=== PATIENT | female | born 1995 ===

== ENCOUNTER 2020-01-21 13:45 | Outpatient (REF) | payer OTHER, SELFPAY ==
[2020-01-21 14:43] LABS: MANUAL DIFF FLAG NO
[2020-01-21 14:47] LABS: Basophils Percent Auto 0.3 % (0-2); Eosinophils Absolute Auto 0.1 X10*3/uL (0.0-0.4); Hematocrit 40.7 % (37-47); Hemoglobin 12.4 g/dl (12.0-16.0); Imm Gran Abs Auto 0.02 X10*3/uL (0.00-0.03); Imm Gran Pct Auto 0.2 % (0.0-0.4); Lymphocytes Absolute Auto 2.7 X10*3/uL (1.2-4.9); Lymphocytes Percent Auto 30.1 % (20-40); Mean Corpuscular HGB Conc 30.5 g/dl (31.0-35.0); Mean Corpuscular Hemoglobin 21.1 pg (27.0-33.0); Mean Corpuscular Volume 69.3 fL (80-98); Mean Platelet Volume 10.9 fL (9.4-12.3); Monocytes Absolute Auto 0.4 X10*3/uL (0.1-1.2); Monocytes Percent Auto 4.7 % (2-11); Neutrophils Absolute Auto 5.6 X10*3/uL (2.0-8.3); Neutrophils Percent Auto 63.7 % (45-73); Platelet Count 357 X10*3/uL (160-400); Red Blood Count 5.87 X10*6/uL (4.20-5.50); Red Cell Distribution Width 19.3 % (11.0-16.0); White Blood Count 8.9 X10*3/uL (4.8-10.8)
[2020-01-21 15:11] LABS: Alanine Aminotransferase 14 U/L (0-31); Alkaline Phosphatase 104 U/L (39-117); Aspartate Amino Transferase 11 U/L (5-31); Bilirubin Direct 0.2 mg/dL (0.0-0.5); Bilirubin Total 0.6 mg/dL (0.0-1.0); Total Protein 7.7 g/dL (6.5-8.0)
[2020-01-21 15:34] LABS: Free T4 (Free Thyroxine) 0.88 ng/dL (0.71-1.85); Thyroid Stimulating Hormone 0.01 mIU/mL (0.32-4.0); Vitamin D 25-OH Total 28.8 ng/mL (>30)
[2020-01-23 04:31] LABS: Triiodothyronine T3 Total 100 ng/dL (76-181)
[2020-01-23 21:07] LABS: PTHI 31 pg/mL (14-64)
== END 2020-01-21 13:46 | disposition home or self-care (01) ==
LOC: HO.LAB 13:45
PROVIDERS: PCP Physician Assistant; Visit Provider Internal Medicine
DX: E05.20 Thyrotoxicosis with toxic multinodular goiter without thyrotoxic crisis or storm (principal); E55.9 Vitamin D deficiency, unspecified; N91.5 Oligomenorrhea, unspecified
CPT/HCPCS: 36415; 80076; 82306; 83970; 84439; 84443; 84480; 85025

== ENCOUNTER 2020-02-25 14:12 | Outpatient (REF) | payer OTHER, SELFPAY ==
[2020-02-25 15:49] LABS: Free T4 (Free Thyroxine) 0.74 ng/dL (0.71-1.85); Thyroid Stimulating Hormone 0.75 uIU/mL (0.32-4.0)
[2020-02-26 20:07] LABS: Triiodothyronine T3 Free 2.6 pg/mL (2.3-4.2)
== END 2020-02-25 14:13 | disposition home or self-care (01) ==
LOC: HO.LAB 14:12
PROVIDERS: PCP Physician Assistant; Visit Provider Surgery
DX: E03.9 Hypothyroidism, unspecified (principal)
CPT/HCPCS: 84439; 84443; 84481

== ENCOUNTER → 2020-03-18 11:05 | Outpatient (BNVA) | payer OTHER, SELFPAY | PROVIDERS: PCP Physician Assistant; Referring Provider Physician Assistant; Visit Provider Internal Medicine | DX: Z76.89 Persons encountering health services in other specified circumstances (principal) ==

== ENCOUNTER 2020-04-20 15:37 | Outpatient (REF) | payer OTHER, SELFPAY ==
[2020-04-20 16:32] LABS: Albumin Level 4.1 g/dL (3.5-5.0); Calcium 9.1 mg/dL (8.4-10.2)
[2020-04-20 16:59] LABS: Thyroid Stimulating Hormone 0.35 uIU/mL (0.32-4.0); Vitamin D 25-OH Total 26.4 ng/mL (>30)
[2020-04-21 09:28] LABS: Triiodothyronine T3 Total 82 ng/dL (76-181)
[2020-04-21 17:43] LABS: Calcium (PTHI) 9.4 mg/dL (8.6-10.2); PTHI 38 pg/mL (14-64)
== END 2020-04-20 15:38 | disposition home or self-care (01) ==
LOC: HO.LAB 15:37
PROVIDERS: PCP Physician Assistant; Visit Provider Internal Medicine
DX: E05.20 Thyrotoxicosis with toxic multinodular goiter without thyrotoxic crisis or storm (principal); E89.0 Postprocedural hypothyroidism; E55.9 Vitamin D deficiency, unspecified
CPT/HCPCS: 36415; 82040; 82306; 82310; 83970; 84439; 84443; 84480

== ENCOUNTER 2020-04-22 17:16 | Emergency (ER) | payer OTHER, SELFPAY ==
[2020-04-22 19:38] VITALS: BP 116/76; PULSE 86; RESP 16; TEMP 36.4; O2SAT 99; BMI 43.4
[2020-04-22 19:42] VITALS: BP 118/69; PULSE 89; RESP 14; TEMP 36.1; O2SAT 99
--- NOTE | 2020-04-22 19:47 | XR_ITS ---
EXAMINATION: XR CHEST CLINICAL INFORMATION: Palpitations COMPARISON: 12/04/2019 TECHNIQUE: Frontal view of the chest was obtained. FINDINGS: Low lung volumes. No focal consolidation or mass. Normal pulmonary vascularity. No pleural effusion or pneumothorax. Normal heart size. No acute osseous abnormality. XR/XR chest 1V IMPRESSION: Low lung volumes. No acute pulmonary disease. No significant change from prior study.
--- NOTE | 2020-04-22 20:18 | PC.NURSE ---
at bedside. IV established, labs obtained. Pt to provide urine sample. Pt aware of plan to await lab results. Continue to monitor.
[2020-04-22 20:30] LABS: Basophils Percent Auto 0.2 % (0-2); Eosinophils Absolute Auto 0.1 X10*3/uL (0.0-0.4); Eosinophils Percent Auto 0.6 % (0-4); Hematocrit 41.2 % (37-47); Hemoglobin 12.7 g/dl (12.0-16.0); Imm Gran Abs Auto 0.04 X10*3/uL (0.00-0.03); Imm Gran Pct Auto 0.4 % (0.0-0.4); Lymphocytes Absolute Auto 3.1 X10*3/uL (1.2-4.9); Lymphocytes Percent Auto 29.8 % (20-40); MANUAL DIFF FLAG NO; Mean Corpuscular HGB Conc 30.8 g/dl (31.0-35.0); Mean Corpuscular Volume 71.5 fL (80-98); Mean Platelet Volume 10.1 fL (9.4-12.3); Monocytes Absolute Auto 0.4 X10*3/uL (0.1-1.2); Monocytes Percent Auto 3.8 % (2-11); Neutrophils Absolute Auto 6.8 X10*3/uL (2.0-8.3); Neutrophils Percent Auto 65.2 % (45-73); Platelet Count 326 X10*3/uL (160-400); Red Blood Count 5.76 X10*6/uL (4.20-5.50); White Blood Count 10.4 X10*3/uL (4.8-10.8)
--- NOTE | 2020-04-22 20:37 | PC.NURSE ---
UA obtained and sent.
[2020-04-22 20:40] LABS: D Dimer < 200 NG/ML
[2020-04-22 20:52] LABS: Glucose Urine UA NEG (NEG); Leukocyte Esterase Urine 1+ (NEG); Nitrite Urine NEG (NEG); Specific Gravity - Urine 1.025 (1.005-1.025); Urine Blood 3+ (NEG); Urine Ketones 5 MG/DL (NEG); Urine Protein NEG (NEG-TRACE)
--- NOTE | 2020-04-22 20:52 | ED_ITS ---
HPI - Chest Pain General Chief Complaint: Arrhythmia/Palpitations Stated Complaint: fluttering Time Seen by Provider: 04/22/20 20:12 Source: patient Mode of arrival: ambulatory Limitations: no limitations History of Present Illness HPI narrative: Patient with nonspecific chest sharp pain for last 1 month left chest tingling denies any palpitation at this time, was seen at urgent care and told to the go to the hospital if gets worse patient nonsmoker no substance abuse no family MD complaint: chest pain Onset (ago): month(s) (1) Timing of current episode: constant Prior episodes: Yes Onset: during rest Pain location: left chest Pain radiation: none Severity: mild Quality: burning Relieving factors: nothing Exacerbating factors: nothing Context: recent illness Related Data Home Medications Medication Instructions Recorded Confirmed cholecalciferol (vitamin D3) 50 50 mcg PO DAILY 03/18/20 03/18/20 mcg (2,000 unit) capsule levothyroxine 150 mcg tablet 150 mcg PO DAILY 03/18/20 03/18/20 propranolol 10 mg tablet 10 mg PO Q8H PRN 03/18/20 03/18/20 Previous Rx's Medication Instructions Recorded omeprazole 20 mg capsule,delayed 20 mg PO DAILY 14 Days #14 cap 04/20/20 release Allergies Allergy/AdvReac Type Severity Reaction Status Date / Time seasonal allergies Allergy Unknown Unknown Uncoded 04/20/20 14:21 Review of Systems Review of Systems: Constitutional : No Weight loss, No Fever, No Chills ENT/Mouth : No sore throat, No Rhinorrhea Eyes: No Eye Pain, No Swelling Cardiovascular : + Chest Pain, occasional palpitations Respiratory : No Cough, No Sputum, no shortness of breath Gastrointestinal : no Nausea, No Vomiting, No Diarrhea, No abdominal Pain, no black stools Genitourinary : No Dysuria, No Urinary Frequency Musculoskeletal : No joint pain, No Myalgias, No Joint Swelling Skin : No Skin Lesions, No rash Neuro : No Weakness, No Numbness, No Dizziness, No Headache Psych : No Anxiety/Panic, No Depression Heme/Lymph: No Bruising, No Lymphadenopathy Endocrine : No Polyuria, No Polydipsia All other systems reviewed and are negative PMFSH Past Medical History Medical History Postoperative hypothyroidism Toxic multinodular goiter Vitamin D deficiency Surgical History No pertinent past surgical history Family History Family History Father No problems noted. Mother No problems noted. Social History Social History Smoking Status: Never smoker Advance Directives: No Advance Directives Information Provided: Yes Physical Exam Vital Signs: Vital Signs: Last Vital Signs Temp 96.9 F 04/22/20 19:42 Pulse 84 04/22/20 21:39 Resp 16 04/22/20 21:39 BP 116/62 04/22/20 21:39 Pulse Ox 99 04/22/20 19:42 Body Mass Index 43.4 Appearance: Alert. Oriented X3. No acute distress. Eyes: Pupils equal, round and reactive to light. ENT: Pharynx normal. Neck: Normal inspection. Neck supple. CVS: Normal heart rate and rhythm. Pulses normal. Respiratory: No respiratory distress. Breath sounds normal chest wall tenderness left side on palpation. Abdomen: Soft and nontender. Bowel sounds are present, no mass palpable, no CVA tenderness Skin: Skin warm and dry. Normal skin color. Normal skin turgor. Extremities: No lower extremity edema. Neuro: Oriented X 3. No motor deficit. No sensory deficit. MDM - Chest Pain Differential Diagnosis Differential diagnosis: Likely atypical chest pain, costochondritis and chest pain Medical Records Data Attestation: I reviewed the patient's medical records. Lab Data Attestation: I reviewed the patient's lab results. Result diagrams: 04/22/20 20:20 04/22/20 20:21 Labs: Lab Results 04/22/20 04/22/20 04/22/20 Range/Units 20:20 20:20 20:20 WBC 10.4 (4.8-10.8) X10*3/uL RBC 5.76 H (4.20-5.50) X10*6/uL Hgb 12.7 (12.0-16.0) g/dl Hct 41.2 (37-47) % MCV 71.5 L (80-98) fL MCH 22.0 L (27.0-33.0) pg MCHC 30.8 L (31.0-35.0) g/dl RDW 15.0 (11.0-16.0) % Plt Count 326 (160-400) X10*3/uL MPV 10.1 (9.4-12.3) fL Immature Gran % (Auto) 0.4 (0.0-0.4) % Neut % (Auto) 65.2 (45-73) % Lymph % (Auto) 29.8 (20-40) % Armstrong % (Auto) 3.8 (2-11) % Eos % (Auto) 0.6 (0-4) % Baso % (Auto) 0.2 (0-2) % Lymph # (Auto) 3.1 (1.2-4.9) X10*3/uL Armstrong # (Auto) 0.4 (0.1-1.2) X10*3/uL Eos # (Auto) 0.1 (0.0-0.4) X10*3/uL Baso # (Auto) 0.0 (0.0-0.2) X10*3/uL Abs Immat Gran (auto) 0.04 H (0.00-0.03) X10*3/uL Absolute Neuts (auto) 6.8 (2.0-8.3) X10*3/uL Absolute Nucleated RBC 0.000 (0.0-0.012) X10*3/uL Nucleated RBC % (auto) 0.0 (0.0-0.2) /100WBC D-Dimer < 200 NG/ML Hold Blue Top SEE NOTE Sodium (135-145) mmol/L Potassium (3.3-5.1) mmol/l Chloride (96-108) mmol/L Carbon Dioxide (22-29) mmol/L Anion Gap (12-20) BUN (9-16) mg/dL Creatinine (0.5-1.4) mg/dL Estim Creat Clear Calc Estimated GFR Random Glucose (60-115) mg/dL Calcium (8.4-10.2) mg/dL Troponin I High Sens < 3.5 (<3.5-17.0) ng/L Urine Color Urine Appearance Urine pH (5.0-8.0) Ur Specific [place] (1.005-1.025) Urine Protein (NEG-TRACE) MG/DL Urine Glucose (UA) (NEG) MG/DL Urine Ketones (NEG) MG/DL Urine Blood (NEG) Urine Nitrite (NEG) Ur Leukocyte Esterase (NEG) Urine RBC (0) /HPF Urine WBC (0-4) /HPF Ur Squamous Epith Cells /LPF Urine Bacteria /LPF Urine Test (NEGATIVE) 04/22/20 04/22/20 04/22/20 Range/Units 20:21 20:31 Unknown WBC (4.8-10.8) X10*3/uL RBC (4.20-5.50) X10*6/uL Hgb (12.0-16.0) g/dl Hct (37-47) % MCV (80-98) fL MCH (27.0-33.0) pg MCHC (31.0-35.0) g/dl RDW (11.0-16.0) % Plt Count (160-400) X10*3/uL MPV (9.4-12.3) fL Immature Gran % (Auto) (0.0-0.4) % Neut % (Auto) (45-73) % Lymph % (Auto) (20-40) % Armstrong % (Auto) (2-11) % Eos % (Auto) (0-4) % Baso % (Auto) (0-2) % Lymph # (Auto) (1.2-4.9) X10*3/uL Armstrong # (Auto) (0.1-1.2) X10*3/uL Eos # (Auto) (0.0-0.4) X10*3/uL Baso # (Auto) (0.0-0.2) X10*3/uL Abs Immat Gran (auto) (0.00-0.03) X10*3/uL Absolute Neuts (auto) (2.0-8.3) X10*3/uL Absolute Nucleated RBC (0.0-0.012) X10*3/uL Nucleated RBC % (auto) (0.0-0.2) /100WBC D-Dimer NG/ML Hold Blue Top Sodium 137 (135-145) mmol/L Potassium 4.8 (3.3-5.1) mmol/l Chloride 105 (96-108) mmol/L Carbon Dioxide 22 (22-29) mmol/L Anion Gap 15 (12-20) BUN 13 (9-16) mg/dL Creatinine 0.71 (0.5-1.4) mg/dL Estim Creat Clear Calc 143.8 Estimated GFR > 60 Random Glucose 92 (60-115) mg/dL Calcium 8.7 (8.4-10.2) mg/dL Troponin I High Sens (<3.5-17.0) ng/L Urine Color YELLOW Urine Appearance HAZY Urine pH 6.0 (5.0-8.0) Ur Specific [place] 1.025 (1.005-1.025) Urine Protein NEG (NEG-TRACE) MG/DL Urine Glucose (UA) NEG (NEG) MG/DL Urine Ketones 5 (NEG) MG/DL Urine Blood 3+ H (NEG) Urine Nitrite NEG (NEG) Ur Leukocyte Esterase 1+ H (NEG) Urine RBC 5-9 H (0) /HPF Urine WBC 1-4 (0-4) /HPF Ur Squamous Epith Cells 1+ /LPF Urine Bacteria TRACE /LPF Urine Test NEGATIVE (NEGATIVE) ECG Data ECG #1: Attestation: I personally reviewed and interpreted this ECG as follows: Interpretation: Sinus tachycardia with heart rate of 105 normal intervals normal axis no acute ST T wave changes no acute ischemia impression sinus tachycardia Discharge Plan Discharge Clinical Impression: Chest wall muscle strain, Sinus tachycardia Patient Disposition: Home, Self-Care Instructions: Heart Palpitations (ED), Chest Wall Pain (ED) Additional Instructions: Your pain is likely from muscular take ibuprofen for pain as advised. Follow with PCP if not better Prescriptions: No Action omeprazole 20 mg capsule,delayed release(DR/EC) 20 mg PO DAILY 14 Days Qty: 14 RF: 0 levothyroxine 150 mcg tablet 150 mcg PO DAILY RF: 0 cholecalciferol (vitamin D3) 50 mcg (2,000 unit) capsule 50 mcg PO DAILY RF: 0 propranolol 10 mg tablet 10 mg PO Q8H PRNRF: 0 Interventions: ED Discharge Assessment Last Done: 04/22/20 21:46 Discharge Date/Time: 04/22/20 21:54
[2020-04-22 20:53] LABS: Appearance Urine HAZY; Color Urine YELLOW
[2020-04-22 20:53] LABS: Anion Gap 15 (12-20); Blood Urea Nitrogen 13 mg/dL (9-16); Calcium 8.7 mg/dL (8.4-10.2); Carbon Dioxide 22 mmol/L (22-29); Chloride 105 mmol/L (96-108); Creatinine Clr Calc Pharmacy 143.8; Estimated Glomerular Filt Rate > 60; Glucose Random 92 mg/dL (60-115); Potassium 4.8 mmol/l (3.3-5.1); Sodium 137 mmol/L (135-145)
--- NOTE | 2020-04-22 20:54 | ECG_ITS ---
Test Reason : CHEST/BACK PAIN Blood Pressure : / mmHG Vent. Rate : 105 BPM Atrial Rate : 105 BPM P-R Int : 154 ms QRS Dur : 076 ms QT Int : 336 ms P-R-T Axes : 032 009 011 degrees QTc Int : 444 ms Sinus tachycardia Otherwise normal ECG When compared with ECG of 04-DEC-2019 03:11, No significant change was found Referred By: Dieter Barlow Electronically Signed By:Aj Johansen
[2020-04-22 20:58] LABS: Troponin-I High Sensitivity < 3.5 ng/L (<3.5-17.0)
[2020-04-22 21:01] LABS: Bacteria Urine TRACE /LPF; Squamous Epithelial Cell Urine 1+ /LPF
[2020-04-22 21:28] LABS: UPreg QC Valid YES; Urine Pregnancy NEGATIVE (NEGATIVE)
[2020-04-22 21:39] VITALS: BP 116/62; PULSE 84; RESP 16
--- NOTE | 2020-04-22 21:40 | PC.NURSE ---
Pt medicated with Toradol for 5/10 pain to left side of chest. VSS. MD at bedside explaining lab results and plan for discharge. Continue to monitor.
[2020-04-22] MEDS: Ketorolac Tromethamine 30 MG/ML VIAL IVPUSH (21:41)
== END 2020-04-22 21:54 | disposition home or self-care (01) ==
PROVIDERS: Emergency Medicine; Emergency Provider Internal Medicine
DX: R00.2 Palpitations (principal); R07.89 Other chest pain; R00.0 Tachycardia, unspecified; Z79.899 Other long term (current) drug therapy
CPT/HCPCS: 36415; 71045; 80048; 81001; 81025; 84484; 85025; 85379; 87086; 93005; 96374; 99284; J1885

== ENCOUNTER 2020-04-28 16:46 | Outpatient (REF) | payer OTHER, SELFPAY | END 2020-04-28 16:47 | disposition home or self-care (01) | LOC: HO.LAB 16:46 | PROVIDERS: PCP Physician Assistant; Visit Provider Internal Medicine | DX: Z20.822 Contact with and (suspected) exposure to COVID-19 (principal) | CPT/HCPCS: 36415; C9803; U0003 ==

== ENCOUNTER → 2020-05-13 14:13 | Outpatient (BNVA) | payer OTHER, SELFPAY | PROVIDERS: PCP Physician Assistant; Visit Provider Internal Medicine | DX: Z76.89 Persons encountering health services in other specified circumstances (principal) ==

== ENCOUNTER → 2020-05-29 10:26 | Outpatient (REF) | payer OTHER, SELFPAY ==
--- NOTE | 2020-05-29 10:28 | ECG_ITS ---
Hook-up date: 2020-05-29 10:51:00 Duration: 47:59:00 Test Indications: PALPITATIONS Medications: [id number] QRS complexes 2 Ventricular ectopics which represent <1 % of total QRS comp. 2 Supraventricular ectopics which represent <1 % of total QRS comp. * Paced QRS complexs which represent % of total QRS comp. VENTRICULAR ECTOPY 2 Isolated 0 Bigeminal Cycles 0 Couplets 0 Runs 0 Beats in Runs * Beats LONGEST at * BPM at :: -- * Beats FASTEST at * BPM at :: -- SUPRAVENTRICULAR ECTOPY 2 Isolated 0 Couplets 0 Runs 0 Beats in Runs * Beats LONGEST at * BPM at :: -- * Beats FASTEST at * BPM at :: -- HEART RATES 56 MIN at 01:22:32 2020-05-30 89 AVG 150 MAX at 23:28:53 2020-05-30 LONGEST RR 1.1600 secs at 07:59:30 2020-05-30 S-T LEVELS Channel 1 - 128 mm at 10:51:00 2020-05-29 - 128 mm at 10:51:00 2020-05-29 Channel 2 - 128 mm at 10:51:00 2020-05-29 - 128 mm at 10:51:00 2020-05-29 Channel 3 - 128 mm at 03:01:01 -- - 128 mm at 03:01:01 Basic rhythm Normal sinus rhythm No long pause or profound bradycardia No dangerous dysrhythm periods Patient did not report any symptoms in the diary Referred By: Marquis Zaidi Overread By: CATARINA JEROME MD
== END ==
LOC: HO.CARD 10:26
PROVIDERS: PCP Physician Assistant; Visit Provider Physician Assistant
DX: R00.2 Palpitations (principal)
CPT/HCPCS: 93226

== ENCOUNTER 2020-06-05 08:20 | Outpatient (REF) | payer OTHER, SELFPAY ==
--- NOTE | ~2020-06-05 | FL_ITS ---
EXAMINATION: FL BARIUM SWALLOW CLINICAL INFORMATION: Epigastric pain. COMPARISON: Barium swallow 12/04/2019. TECHNIQUE: Barium swallow examination is performed using fluoroscopic evaluation in addition to multiple fluoroscopic spot views. The patient is imaged both upright and prone and using both thick and thin sulfate along with effervescent granules. Fluoroscopy time: 0.3 minutes DAP: 3.523 Gycm2 Images: 21 FINDINGS: Esophagus is normal in contour and caliber. No definite esophageal mass lesions or ulcerations are identified. There is no hiatal hernia. Trace gastroesophageal reflux to the level of the distal third of the esophagus. FL/FL barium swallow IMPRESSION: Trace gastroesophageal reflux to the level of the distal third of the esophagus. Otherwise unremarkable barium swallow.
== END 2020-06-05 08:21 | disposition home or self-care (01) ==
LOC: HO.XRAY 08:20
PROVIDERS: Visit Provider Physician Assistant
DX: R10.13 Epigastric pain (principal)
CPT/HCPCS: 74220

== ENCOUNTER → 2020-07-16 09:42 | Outpatient (BNVA) | payer OTHER, SELFPAY | PROVIDERS: PCP Physician Assistant; Visit Provider Internal Medicine ==

== ENCOUNTER 2020-07-21 13:35 | Outpatient (REF) | payer OTHER, SELFPAY ==
[2020-07-21 15:16] LABS: Albumin Level 4.1 g/dL (3.5-5.0); Calcium 8.7 mg/dL (8.4-10.2); Phosphorus 3.1 mg/dL (2.7-4.5)
[2020-07-21 15:39] LABS: Free T4 (Free Thyroxine) 0.88 ng/dL (0.71-1.85); Thyroid Stimulating Hormone 5.04 uIU/mL (0.32-4.0); Vitamin D 25-OH Total 19.9 ng/mL (>30)
[2020-07-22 15:01] LABS: Calcium (PTHI) 9.1 mg/dL (8.6-10.2); PTHI 28 pg/mL (14-64)
== END 2020-07-21 13:36 | disposition home or self-care (01) ==
LOC: HO.LAB 13:35
PROVIDERS: PCP Physician Assistant; Visit Provider Internal Medicine
DX: E05.20 Thyrotoxicosis with toxic multinodular goiter without thyrotoxic crisis or storm (principal); E55.9 Vitamin D deficiency, unspecified
CPT/HCPCS: 36415; 82040; 82306; 82310; 83970; 84100; 84439; 84443

== ENCOUNTER 2020-11-16 16:43 | Outpatient (REF) | payer OTHER, SELFPAY ==
[2020-11-16 18:17] LABS: Free T4 (Free Thyroxine) 1.51 ng/dL (0.71-1.85); Thyroid Stimulating Hormone 2.29 uIU/mL (0.32-4.0)
== END 2020-11-16 16:44 | disposition home or self-care (01) ==
LOC: HO.LAB 16:43
PROVIDERS: PCP Physician Assistant; Visit Provider Internal Medicine
DX: E89.0 Postprocedural hypothyroidism (principal)
CPT/HCPCS: 36415; 84439; 84443

== ENCOUNTER 2020-12-18 08:43 | Outpatient (REF) | payer OTHER, SELFPAY ==
--- NOTE | 2020-12-18 14:39 | PFT_ITS ---
Forced vital capacity, FEV1, VLS04-34, and MVV are normal. Post bronchodilator therapy, there is no change. Total lung capacity and residual volume normal. Diffusion capacity normal. CONCLUSION: Normal pulmonary function test. No obstructive or restrictive pulmonary disorder. MD MEDINA Paredes/MARCO / [phone]
== END 2020-12-18 08:44 | disposition home or self-care (01) ==
LOC: HO.RESP 08:43
PROVIDERS: PCP Physician Assistant; Visit Provider Physician Assistant
DX: R06.02 Shortness of breath (principal); R00.2 Palpitations
CPT/HCPCS: 94060; 94727; 94729

== ENCOUNTER 2021-01-22 15:22 | Outpatient (REF) | payer OTHER, SELFPAY ==
[2021-01-23 14:42] LABS: H Pylori Breath Test Negative (Negative)
== END 2021-01-22 15:23 | disposition home or self-care (01) ==
LOC: HO.LNP 15:22
PROVIDERS: PCP Physician Assistant; Referring Provider Physician Assistant; Visit Provider Nurse Practitioner Family
DX: R10.13 Epigastric pain (principal); K59.01 Slow transit constipation
CPT/HCPCS: 83013

== ENCOUNTER 2021-03-03 12:25 | Day surgery (SDC) | payer OTHER, SELFPAY ==
--- NOTE | 2021-03-02 10:35 | P.CONAN_ITS ---
Documented by User: Shannen Packer NP 03/02/21 10:36 HPI - Anesthesia Eval Consult details Narrative: 25yo F for Upper Endoscopy [facility] Active Problems Active Problems: All Active Problems (Updated 02/25/21 @ 12:58 by Conchis Laurent, RN) Epigastric burning sensation (Acute) Heart palpitations (Acute) [place] (generalized anxiety disorder) (Acute) Epigastric abdominal pain (Acute) SOB (shortness of breath) (Acute) Exposure to COVID-19 virus (Acute) Vitamin D deficiency (Acute) Toxic multinodular goiter (Acute) Postoperative hypothyroidism (Acute) Past Medical History Medical History (Updated 02/25/21 @ 12:58 by Conchis Laurent, BEKAH) Palpitations Postoperative hypothyroidism Toxic multinodular goiter Vitamin D deficiency Family History Family History Father No problems noted. Mother No problems noted. Surgical History Surgical History H/O thyroidectomy No pertinent past surgical history Social History Social History Household Members: Family Patient Tobacco Use Status: Never used Tobacco Use of substances other than those prescribed or required for medical reasons: No Have you been hit, kicked, punched, or otherwise hurt by someone within the past year? If so, by whom?: No Are you DNR?: No Advance Directives: No Advance Directives Information Provided: Yes Recently lost weight without trying: No Nutrition Risks: No Nutritional Risk Meds Allergies Allergy/AdvReac Type Severity Reaction Status Date / Time seasonal allergies Allergy Unknown Unknown Uncoded 02/25/21 13:13 Exam Exam Date and Time: March 02, 2021 1035 Assessment and Plan Assessment Anesthesia Assessment: Chart Reviewed Documented by User: Felicita Ordonez MD 03/03/21 13:18 [facility] Past Medical History Medical History (Updated 02/25/21 @ 12:58 by Conchis Laurent RN) Palpitations Postoperative hypothyroidism Toxic multinodular goiter Vitamin D deficiency Family History Family History Father No problems noted. Mother No problems noted. Family history of problems with anesthesia: No Surgical History Surgical History H/O thyroidectomy No pertinent past surgical history History of Problems with Anesthesia: No Social History Social History Household Members: Family Patient Tobacco Use Status: Never used Tobacco Use of substances other than those prescribed or required for medical reasons: No Have you been hit, kicked, punched, or otherwise hurt by someone within the past year? If so, by whom?: No Are you DNR?: No Advance Directives: No Advance Directives Information Provided: Yes Recently lost weight without trying: No Nutrition Risks: No Nutritional Risk Meds Allergies Allergy/AdvReac Type Severity Reaction Status Date / Time seasonal allergies Allergy Unknown Unknown Uncoded 02/25/21 13:13 Exam Airway Mallampati Class: I (Upper crown ) TM Dist: >3cm Neck ROM: Full Heart: rrr Lungs: bl breath sounds Assessment and Plan Final Anesthetic Review Family History of Problems with Anesthesia: No History of Problems with Anesthesia: No NPO: Yes ASA Class: II Final Preanesthetic Review: Meds/Allgs Chart Reviewed and Consent Obtained/Reviewed Patient Risk: Intermediate Procedure Risk: Intermediate Anesthetic Plan Anesthetic Plan: MAC: Disposition: Standard PACU
[2021-03-03 12:50] VITALS: BP 141/87; PULSE 81; RESP 16; TEMP 36.8; O2SAT 99; BMI 46.9
[2021-03-03 13:03] LABS: UPreg QC Valid YES; Urine Pregnancy NEGATIVE (NEGATIVE)
--- NOTE | 2021-03-03 13:05 | MHC.SHP ---
Pre-Procedural Eval Section A Date of Service: 03/03/21 Section B Chief Complaint: Epigastric Pain Details of Present Illness: FH CRC in father aged 35 Relevant Family History (Specify if Yes): Yes Relevant Social History: None Present Medications: see Short Stay Collaborative assessment Medical History: Significant History (Postoperative hypothyroidism Toxic multinodular goiter Vitamin D deficiency) History of Previous Operations: Relevant previous surgery/procedure and date(s) (thyroidectomy ) Allergies: Allergies Allergy/AdvReac Type Severity Reaction Status Date / Time seasonal allergies Allergy Unknown Unknown Uncoded 02/25/21 13:13 Review of Systems Sugical H&P ROS: Negative: Constitution, Cardiovascular, Respiratory, Neurological, Psychiatric, Hem-Onc, Allergic/Immunologic, Gastrointestinal, Genitourinary, Musculoskeletal, Integumentary, Endocrine and Eyes/Ears/Nose/Throat Exam Surgical H&P Exam: Normal: HEENT, Normal: Heart, Normal: Lungs, Normal: Extremities, Normal: Abdomen, Normal: Skin and Normal: Neurological Plan Diagnosis/Plan: Unchanged I have reviewed the history and physical and performed a pertinent physical examination on my patient. No changes have occurred unless specified.
[2021-03-03] MEDS: Lactated Ringers 1,000 ML 100 ML IVCONT (13:10)
--- NOTE | 2021-03-03 13:43 | P.BOP_ITS ---
Brief Operative Note Date of Service: 03/03/21 Pre-op diagnosis: esophageal discomfort Post-op diagnosis: same Procedure: see op note Surgeon: Alireza Borja MD Anesthesia: MAC Was an [employer] Project Manager used for this Procedure?: No Estimated blood loss (mL): 0 Condition: stable Disposition: PACU
--- NOTE | 2021-03-03 13:44 | W.PM.OPN ---
Operative Note Operative Note Date of Service: 03/03/21 Narrative: Procedure Description: EGD FLEXIBLE TRANSORAL UPPER GASTROINTESTINAL ENDOSCOPY UPPER ENDOSCOPY Consent: Indications for the procedure and potential complications of bleeding, perforation, reaction to medications and missed diagnosis were discussed with the patient and informed consent was obtained. Instrument: Olympus GIF H 190 J mid size upper endoscope Monitoring: Vital signs and clinical assessment, continuous EKG monitoring, Pulse oximetry, Carbon Dioxide monitoring and blood pressure monitoring were done throughout the procedure. Procedure: The patient was placed in the left lateral decubitis position and pre-procedure medications were administered and a bite block was placed. The endoscope was inserted into the mouth and advanced under direct vision to the third part of duodenum. A careful inspection was made as the upper endoscope was withdrawn including a retroflexed examination of the proximal stomach; Findings and interventions are described below. Findings: Larynx:normal Esophagus: GE junction at 38 cm, diaphragm hiatus at 38 cm, GEj was boggy and edematous with inflammation, bx taken from GEJ and random esophagus Stomach: Patchy gastric erythema. Biopsies were obtained. Grade 2 flap valve on retroflexed examination of the cardia. Duodenum: Normal bulb and descending duodenum, bx taken Intervention: Biopsies as noted above Impression/Findings: esophagitis gastritis PLAN: await bx results\ consider trial of PPi and assess response
[2021-03-03 13:53] VITALS: BP 119/64; PULSE 107; RESP 15; TEMP 37; O2SAT 95
[2021-03-03 14:08] VITALS: BP 144/87; PULSE 94; RESP 17; O2SAT 96
[2021-03-03 14:23] VITALS: BP 129/83; PULSE 77; RESP 16; TEMP 37; O2SAT 98
== END 2021-03-03 14:35 | disposition home or self-care (01) ==
PROVIDERS: Nurse Practitioner; PCP Physician Assistant; Visit Provider Internal Medicine Gastroenterology
PROC: 0DJ08ZZ Inspection of Upper Intestinal Tract, Via Natural or Artificial Opening Endoscopic (ICD-10-PCS; CPT 43235; principal; 2021-03-03 14:10)
DX: K20.80 Other esophagitis without bleeding (principal); K21.9 Gastro-esophageal reflux disease without esophagitis; K31.89 Other diseases of stomach and duodenum; K44.9 Diaphragmatic hernia without obstruction or gangrene; E89.0 Postprocedural hypothyroidism; E55.9 Vitamin D deficiency, unspecified; K59.01 Slow transit constipation; Z79.899 Other long term (current) drug therapy
CPT/HCPCS: 43239; 81025; 88305; 88342

== ENCOUNTER → 2021-06-10 14:29 | Outpatient (BNVA) | payer OTHER, SELFPAY | PROVIDERS: PCP Physician Assistant; Visit Provider Internal Medicine ==

== ENCOUNTER 2021-06-12 11:21 | Outpatient (REF) | payer OTHER, SELFPAY ==
[2021-06-12 13:47] LABS: Alanine Aminotransferase 17 U/L (0-31); Albumin Level 3.9 g/dL (3.5-5.0); Alkaline Phosphatase 87 U/L (39-117); Anion Gap 13 (12-20); Aspartate Amino Transferase 14 U/L (5-31); Bilirubin Total 0.8 mg/dL (0.0-1.0); Blood Urea Nitrogen 10 mg/dL (9-16); Calcium 9.2 mg/dL (8.4-10.2); Carbon Dioxide 22 mmol/L (22-29); Chloride 106 mmol/L (96-108); Estimated Glomerular Filt Rate > 60; Glucose Random 98 mg/dL (60-115); Phosphorus 2.5 mg/dL (2.7-4.5); Sodium 137 mmol/L (135-145); Total Protein 7.6 g/dL (6.5-8.0)
[2021-06-12 14:11] LABS: Free T4 (Free Thyroxine) 1.26 ng/dL (0.71-1.85); Vitamin D 25-OH Total 16.5 ng/mL (>30)
[2021-06-13 02:27] LABS: Triiodothyronine T3 Total 113 ng/dL (76-181)
[2021-06-15 14:51] LABS: Calcium (PTHI) 8.9 mg/dL (8.6-10.2); PTHI 52 pg/mL (14-64)
== END 2021-06-12 11:22 | disposition home or self-care (01) ==
LOC: HO.HMGCLDS 11:21
PROVIDERS: PCP Physician Assistant; Visit Provider Internal Medicine
DX: E55.9 Vitamin D deficiency, unspecified (principal); E89.0 Postprocedural hypothyroidism
CPT/HCPCS: 36415; 80053; 82306; 83970; 84100; 84439; 84443; 84480

== ENCOUNTER 2021-10-05 16:21 | Outpatient (REF) | payer OTHER, SELFPAY ==
[2021-10-05 17:08] LABS: Iron 47 mcg/dL (30-160); Percent Iron Saturation 15 % (15-50); Total Iron Binding Capacity 322 mcg/dL (228-428); Unsaturated Iron Binding 275 ug/dL
[2021-10-05 17:23] LABS: Free T4 (Free Thyroxine) 1.34 ng/dL (0.71-1.85); Thyroid Stimulating Hormone 0.13 uIU/mL (0.32-4.0); Vitamin D 25-OH Total 36.2 ng/mL (>30)
[2021-10-05 17:37] LABS: Folate 6.7 ng/mL (> or = 4.0); Vitamin B12 458 pg/mL (200-900)
== END 2021-10-05 16:22 | disposition home or self-care (01) ==
LOC: HO.LAB 16:21
PROVIDERS: Absent Provider Physician Assistant; PCP Physician Assistant; Visit Provider Internal Medicine
DX: E55.9 Vitamin D deficiency, unspecified (principal); E05.20 Thyrotoxicosis with toxic multinodular goiter without thyrotoxic crisis or storm; E89.0 Postprocedural hypothyroidism; E53.8 Deficiency of other specified B group vitamins; R20.2 Paresthesia of skin; D50.9 Iron deficiency anemia, unspecified
CPT/HCPCS: 36415; 82306; 82607; 82746; 83540; 84439; 84443

== ENCOUNTER 2022-02-07 14:38 | Outpatient (REF) | payer OTHER, SELFPAY ==
[2022-02-08 05:27] LABS: CT PCR NOT DETECTED (Not Detect.); NG PCR NOT DETECTED (Not Detect.)
[2022-02-08 12:24] LABS: BV Int Neg Control Negative (Negative); BV Int Pos Control Positive (Positive)
== END 2022-02-07 14:39 | disposition home or self-care (01) ==
LOC: HO.LNP 14:38
PROVIDERS: Visit Provider Advanced Practice Midwife
DX: Z01.419 Encounter for gynecological examination (general) (routine) without abnormal findings (principal)
CPT/HCPCS: 87480; 87491; 87510; 87591; 87660; 88142

== ENCOUNTER 2022-03-09 13:34 | Outpatient (REF) | payer OTHER, SELFPAY ==
[2022-03-09 15:19] LABS: Free T4 (Free Thyroxine) 1.13 ng/dL (0.71-1.85); Thyroid Stimulating Hormone 2.31 uIU/mL (0.32-4.0)
[2022-03-09 16:42] LABS: Vitamin D 25-OH Total 28.1 ng/mL (>30)
== END 2022-03-09 13:35 | disposition home or self-care (01) ==
LOC: HO.LAB 13:34
PROVIDERS: PCP Physician Assistant; Visit Provider Internal Medicine
DX: E05.20 Thyrotoxicosis with toxic multinodular goiter without thyrotoxic crisis or storm (principal); E89.0 Postprocedural hypothyroidism; E55.9 Vitamin D deficiency, unspecified
CPT/HCPCS: 36415; 82306; 84439; 84443

== ENCOUNTER → 2022-03-18 11:21 | Outpatient (BNVA) | payer OTHER, SELFPAY | PROVIDERS: PCP Physician Assistant; Visit Provider Advanced Practice Midwife | DX: Z30.46 Encounter for surveillance of implantable subdermal contraceptive (principal); B37.2 Candidiasis of skin and nail | CPT/HCPCS: 11982 ==

== ENCOUNTER 2022-05-04 14:13 | Outpatient (REF) | payer OTHER, SELFPAY ==
[2022-05-04 18:55] LABS: CT PCR NOT DETECTED (Not Detect.); NG PCR NOT DETECTED (Not Detect.)
[2022-05-05 13:49] LABS: BV Int Neg Control Negative (Negative); BV Int Pos Control Positive (Positive)
== END 2022-05-04 14:14 | disposition home or self-care (01) ==
LOC: HO.LNP 14:13
PROVIDERS: PCP Physician Assistant; Visit Provider Advanced Practice Midwife
DX: Z11.3 Encounter for screening for infections with a predominantly sexual mode of transmission (principal); N89.8 Other specified noninflammatory disorders of vagina; N89.5 Stricture and atresia of vagina
CPT/HCPCS: 0353U; 87480; 87510; 87660

== ENCOUNTER 2022-05-04 14:35 | Outpatient (REF) | payer OTHER, SELFPAY | END 2022-05-04 14:36 | disposition home or self-care (01) | LOC: HO.LAB 14:35 | PROVIDERS: Visit Provider Advanced Practice Midwife | DX: Z13.89 Encounter for screening for other disorder (principal) ==

== ENCOUNTER 2022-10-11 15:14 | Outpatient (REF) | payer OTHER, SELFPAY ==
[2022-10-11 16:36] LABS: Thyroid Stimulating Hormone 2.58 uIU/mL (0.32-4.0); Vitamin D 25-OH Total 35.7 ng/mL (>30)
== END 2022-10-11 15:15 | disposition home or self-care (01) ==
LOC: HO.LAB 15:14
PROVIDERS: PCP Physician Assistant; Visit Provider Internal Medicine
DX: E55.9 Vitamin D deficiency, unspecified (principal); E89.0 Postprocedural hypothyroidism
CPT/HCPCS: 36415; 82306; 84439; 84443

== ENCOUNTER 2023-12-12 08:50 | Outpatient (AMB) | payer OTHER, SELFPAY ==
[2023-12-12 08:54] VITALS: BP 120/84; PULSE 88; O2SAT 98; BMI 49.3
--- NOTE | 2023-12-12 08:54 | MHC.PC.OV ---
Vital Signs 12/12/23 08:54 Height 5 ft 2 in Weight 269 lb 8 oz BMI 49.3 BP 120/84 Blood Pressure Location Lt brachial Position Sitting Pulse 88 Pulse Source Pulse Oximeter Pulse Oximetry (%) 98 Oxygen Delivery Method Room Air Intake Visit Reasons: Annual Exam Intake Note: Patient is here today for a physical. Nurse Practitioner Physicians Assistant Required: No Accompanied by: Self / Same As Patient Allergies Seasonal Allergies Allergy (Mild, Verified 12/12/23 09:01) Unknown Medication List - Last Reconciled 12/12/23 by Marquis Zaidi PA-C cholecalciferol (vitamin D3) 50 mcg PO DAILY 30 days levothyroxine 150 mcg PO DAILY 30 days sertraline 50 mg PO DAILY Tobacco use date assessed: 12/12/23 Dental Screening Dental Screen Date: 12/12/23 Did you have a dental visit in the last 12 months?: No Did you have a dental problem in the last 6 months where you did not have access to dental care?: Yes Was dental information given to patient?: Patient has dentist HPI Annual Exam HPI Details Patient is a 28-year-old female here today for routine annual physical. Patient has a past medical history significant for hypothyroidism, obesity, anxiety, vitamin-D deficiency. Concerns--> her weight has been an issue, has not been able to lose much weight. Has been trying to be more physically active though has not been effective. She is interested in GLP 1 to help her lose weight. She is interested in speaking with a dietitian.. Other concerns is that she often gets cystic skin manifestations underneath her breast and axillary regions. .. Hypothyroidism: Patient is status post thyroidectomy. Was stay levothyroxine 50 mcg. She does admit to being somewhat inconsistent with the medication. Will recheck levels to ensure normal TSH. .. Anxiety: Patient continues on sertraline which has been helpful for her anxiety. She does admit to mixed IBS symptoms that are related to her anxious symptoms and stress. 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 1. Little interest or pleasure in doing things: not at all 2. Feeling down, depressed, or hopeless: not at all 3. Trouble falling or staying asleep, or sleeping too much: not at all 4. Feeling tired or having little energy: not at all 5. Poor appetite or overeating: not at all 6. Feeling bad about yourself - or that you are a failure or have let yourself or your family down: not at all 7. Trouble concentrating on things, such as reading the newspaper or watching television: not at all 8. Moving or speaking so slowly that other people could have noticed. Or the opposite - being so fidgety or restless that you have been moving around a lot more than usual: not at all 9. Thoughts that you would be better off or of hurting yourself in some way: not at all Total score: 0 Depression Screening Interpretation: Negative Depression Screening Done: Yes 96135 - PHQ-9 Billing: Yes Source: Developed by Drs. Juan Velez, Cora Rosas, Carlos Andesren and colleagues, with an educational justin from [employer]. Thrive Questionnaire Date Thrive assessed: 12/12/23 I am a: Patient What is your living situation today?: I have a steady place to live Within the past 12 months, did the food you bought not last and you didn't have the money to get more?: Never true Within the past 12 months, did you worry whether your food would run out before you got money to buy more?: Never true Do you have trouble paying for medicines?: No Do you have trouble getting transportation to medical appointments?: No Do you have trouble paying your heating and electricity bill?: No Do you have trouble taking care of your child, family member or friend?: No Do you have trouble with day-to-day activities such as bathing, preparing meals, shopping, managing finances, etc.?: No Are you currently unemployed and looking for a job?: No Are you interested in more education?: No Please select the resources that you would like help with: None Currently or been in a relationship where the following occur: No concerns reported THRIVE Score: 0 AUDIT C Alcohol Use Questionnaire (AUDIT-C) 1. How often do you have a drink containing alcohol?: 2-3 times a week 2. How many drinks containing alcohol do you have on a typical day when you are drinking?: 1 or 2 3. How often do you have six or more drinks on one occasion?: Never Total Score: 3 Score Reviewed/Action Taken: No MONROE-7 AMB Questionnaire MONROE-7 Date MONROE - 7 assessed: 12/12/23 Feeling nervous, anxious, or on edge: 0 = Not at all Not being able to stop or control worryin = Not at all Worrying too much about different things: 0 = Not at all Trouble relaxin = Not at all Being so restless that it is hard to sit still: 0 = Not at all Becoming easily annoyed or irritable: 0 = Not at all Feeling afraid as if something awful might happen: 0 = Not at all Total MONROE-7 score (0-4 normal; 5-9 mild; 10-14 moderate; 15-21 severe): 0 Source: Developed by Drs. Juan Velez, Cora Rosas, Carlos Andersen and colleagues, with an educational justin from [employer]. MONROE-7 Assessment Billing MONROE-7 Assessment Tool: MONROE-7 Assessment 68190 Review of Systems Const Denies body aches, Denies chills, Denies excessive sweating, Denies fatigue, Denies fever(s) and Denies headache(s) Eyes Denies blurry vision ENT Denies dysphagia, Denies vertigo, Denies dizziness, Denies headache(s), Denies hearing loss and Denies tinnitus Card Denies chest pain, Denies chest pain with activity, Denies syncope, Denies irregular heart rhythm and Denies dyspnea Resp Denies chest congestion, Denies cough, Denies hemoptysis, Denies dyspnea and Denies wheezing GI Denies abdominal pain, Denies melena, Denies hematochezia, Denies coffee ground emesis, Denies dysphagia, Denies diarrhea, Denies nausea and Denies vomiting Denies urinary frequency, Denies dysuria, Denies urinary hesitancy and Denies urinary urgency Musc Denies arthralgias, Denies limited range of motion, Denies muscle cramps and Denies muscle weakness Skin/Breast Denies rash and Denies skin ulcer Neuro Denies Abnormal speech present, Denies confusion, Denies vertigo, Denies dizziness, Denies syncope, Denies headache(s), Denies memory loss and Denies seizure-like activity Psych Denies anxiety, Denies confusion, Denies depression, Denies memory loss, Denies panic attacks and Denies paranoia Endo Denies excessive sweating, Denies fatigue, Denies flushing, Denies polydipsia and Denies polyuria Aller/Immun Denies wheezing Physical exam (Primary Care) Vital Signs: Last Vital Signs Pulse 88 12/12/23 08:54 BP 120/84 12/12/23 08:54 Pulse Ox 98 12/12/23 08:54 Oxygen Delivery Method Room Air 12/12/23 08:54 BMI result Body Mass Index 49.3 Tobacco/Smoking Status: Tobacco use Status Tobacco use date assessed 12/12/23 12/12/23 09:01 Patient Tobacco Use Status Never used Tobacco 12/12/23 09:08 e-Cigarette/Vaping Use Never Used 12/12/23 09:08 PHQ-9: PHQ-9 Score PHQ-9: Total score 0 12/12/23 09:38 Depression Screening Interpretation: Negative Thrive Assessment: Date of Thrive Assessment Date Thrive assessed 12/12/23 12/12/23 09:00 Currently or been in a relationship where the following occur: No concerns reported Const General: cooperative, comfortable, no acute distress, alert and awake; No confusion Orientation/consciousness: oriented to person, oriented to place, patient oriented x3 and No confusion HENMT Head: Yes normocephalic Ears: external ears normal and TM's normal bilaterally Face and sinus: No sinus tenderness Mouth: Normal oral and palatal mucosa present and tongue normal Teeth and gingiva: dentition normal and gingiva normal Throat: Yes posterior oropharynx normal, Yes tonsils normal and Yes uvula midline Eyes Conjunctivae: conjunctivae normal Sclerae: sclerae normal Pupils: Equal, round and reactive pupils present EOM: EOMs intact bilaterally Direct Ophthalmoscopy: No no photophobia Neck Neck: Yes no lymphadenopathy, No tender and Yes no JVD Thyroid: Thyroid normal Carotids: no bruits Chest Chest palpation & inspection: no tenderness Resp Effort & Inspection: normal respiratory effort, no audible wheezes, not labored and no stridor Auscultation: no crackles, no rales, no rhonchi and no wheezes Cardio Jugular venous distension: no JVD Rate: regular rate, not bradycardic and not tachycardic Rhythm: regular rhythm Bruits: no carotid bruits Peripheral pulses: Peripheral pulses 2+ throughout GI Inspection: Yes normal to inspection, No abdominal wall ecchymosis and No visible herniation Palpation (GI): Soft to palpation, nontender, no guarding, not rigid and No hepatosplenomegaly present Auscultation: normoactive bowel sounds General: Yes no CVA tenderness Back/Spine/Pelvis Back: no CVA tenderness and No back tenderness Cervical Spine: cervical ROM normal Thoracic/Lumbar Spine: thoracic and lumbar spine normal to inspection, straight leg raise negative bilaterally, No thoraco-lumbar ROM limited and No lumbar spinal tenderness Skin Lesions: no lesions Rashes: no rashes Wounds: no wounds Neuro General: oriented to person, oriented to place, patient oriented x3, CN's II-XI intact bilaterally and No confusion Cranial nerves: Yes Equal, round and reactive pupils present and Yes Normal accommodation reflex present Cognition (Neuro): normal cognition Speech: No Abnormal speech present Gait exam (Neuro): Normal gait present Motor exam (neuro): 5/5 motor strength present throughout Extrem Right upper extremity: full ROM; no cyanosis Left upper extremity: full ROM; no cyanosis Right lower extremity: no edema Left lower extremity: no edema Psych Appearance: grossly normal Mental Status: mental status grossly normal Affect: normal affect Attitude: cooperative Thought process: Normal thought process present Immunizations Boostrix Tdap 2.5 Lf unit-8 mcg-5 Lf/0.5 mL intramuscular syringe Performing Provider: Marquis Zaidi PA-C [facility] Administered by: CLOVIS Levine on 12/12/23 09:40 Dose Route Admin Location Dispensed Lot Number Expiration Date NDC Surveyor Rod Helper 0.5 mL IM Left Deltoid 0.5 mL [id number] 12/01/25 [id number] [employer] VIS Given Date VIS Provided VIS Publication Date 12/12/23 Single Vaccine 20 Eligibility Eligibility Date Funding Source Not VFC Eligible 12/12/23 Private Assessment and Plan Assessment & Plan (1) Annual physical exam: Code(s): Z00.00 - Encounter for general adult medical examination without abnormal findings (2) MONROE (generalized anxiety disorder): Code(s): F41.1 - Generalized anxiety disorder Plan: Patient anxiety has been fairly stable. Continues on sertraline 50 mg. (3) Mixed irritable bowel syndrome: Code(s): K58.2 - Mixed irritable bowel syndrome Plan: She does report having mixed constipation and diarrhea IBS symptoms. We did discuss the all around treatment for IBS- mixed (4) PRIYANKA (obstructive sleep apnea): Code(s): G47.33 - Obstructive sleep apnea (adult) (pediatric) Plan: Patient does admit to daytime tiredness and waking in the middle night gasping for air. Will send for home sleep study to evaluate for obstructive sleep apnea. STOP BANG--> moderate risk obstructive sleep apnea (5) Morbid obesity with body mass index (BMI) of 40.0 to 49.9: Code(s): E66.01 - Morbid (severe) obesity due to excess calories Plan: Patient's BMI remains above 40. She is had difficulty with losing weight. Has tried to change diet and be more physically active though has not been effective. She does have somewhat of a sedentary work environment. She is interested in speaking with dietitian as she does have IBS and is irritated by certain foods and would like to come up with a diet plan. She is interested in starting a GLP 1 to help her lose weight. (6) Cystic acne: Code(s): L70.0 - Acne vulgaris Plan: Patient interested in seeing a timber sizer (7) Screening for diabetes mellitus (DM): Code(s): Z13.1 - Encounter for screening for diabetes mellitus Orders: Orders RT home sleep study Today G47.33 - Obstructive sleep apnea (adult) (pediatric) TSH reflex Free T4 Today E89.0 - Postprocedural hypothyroidism Comprehensive [place]. Panel Fast Today Z13.1 - Encounter for screening for diabetes mellitus Vitamin D 25-OH Total Today E55.9 - Vitamin D deficiency, unspecified TDaP Immunization Today Z23 - Encounter for immunization Referrals Dermatology Referral L70.0 - Acne vulgaris Roll Cleaner Nutrition Referral E66.01 - Morbid (severe) obesity due to excess calories Medications: New semaglutide (weight loss) (Wegovy) administer weeks 1 through 4 of therapy 0.25 mg (0.5 mL) subcut QWEEK 2 mL 0RF 4 weeks E66.01 - Morbid (severe) obesity due to excess calories Coding Level of Care Code Est Pt Prev Care 18-39y(97784) Diagnoses Annual physical exam Z00.00 MONROE (generalized anxiety disorder) F41.1 Mixed irritable bowel syndrome K58.2 PRIYANKA (obstructive sleep apnea) G47.33 Morbid obesity with body mass index (BMI) of 40.0 to 49.9 E66.01 Cystic acne L70.0 Screening for diabetes mellitus (DM) Z13.1 Additional Codes MONROE-7 Assessment Billing - MONROE-7 Assessment Tool: MONROE-7 Assessment 61145 ([id number])
== END 2023-12-12 09:42 | disposition home or self-care (01) ==
PROVIDERS: PCP Physician Assistant; Visit Provider Physician Assistant
DX: Z00.00 Encounter for general adult medical examination without abnormal findings (principal); E66.01 Morbid (severe) obesity due to excess calories; Z68.42 Body mass index [BMI] 45.0-49.9, adult; Z23 Encounter for immunization; F41.1 Generalized anxiety disorder; K58.2 Mixed irritable bowel syndrome; G47.33 Obstructive sleep apnea (adult) (pediatric); L70.0 Acne vulgaris; Z13.1 Encounter for screening for diabetes mellitus
CPT/HCPCS: 90471; 90715; 99395

== ENCOUNTER 2024-01-15 14:20 | Outpatient (AMB) | payer OTHER, SELFPAY ==
--- NOTE | 2024-01-15 14:29 | A.OFFVIS_ITS ---
VS Expanded 01/15/24 14:38 Height 5 ft 2 in Weight 269 lb BMI 49.2 Intake Visit Reasons: Morbid Obesity/LVM Allergies Seasonal Allergies Allergy (Mild, Verified 12/12/23 09:01) Unknown Nutrition Presentation Details: Pt presents for MNT for obesity. Pt was referred by PCP Pt has hx of post operative hypothyroidism, mixed IBS Pt reports having lack of meal routine food frequency fruits: 0-2 x/wk non starchy vegetables 2x/wk fish- not including dairy: trying a variety of alternatives r/t IBS sx starches> 30 /day fried foods: 3 x/wk beverages/fluids : 12 oz /day physical activity:daily life activities ETOH/Smoking: --- BS Monitoring Most Recent Diabetes Results: No Data to Display RVT-Wgwcevi-Kd.Jeor Equation Height: 5 ft 2 in Weight: 269 lb Resting Metabolic Rate: 1894.59 Calculated Activity Level: Sedentary Calories Needed to Maintain Weight: 2273.51 Diagnosis Nutrition problem #1: food nutri know defi As related to (etiology) #1: diagnosis As evidenced by (sign/symptom) #1: high BMI (49 (02/07)) and knowledge deficit of diet [facility] Medical History Nexplanon in place Palpitations Vitamin D deficiency Toxic multinodular goiter Postoperative hypothyroidism Surgical History Hx of endoscopy H/O thyroidectomy Family History Father Diabetes Mother No problems noted. 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 needs: No Hearing needs: No Vision needs: No Female Reproductive History Menstrual Age of Menarche: 10 Assessment & Plan Assessment & Plan (1) Morbid obesity with body mass index (BMI) of 40.0 to 49.9: Code(s): E66.01 - Morbid (severe) obesity due to excess calories Category: Medical Plan: Wt: 122 Kg ( 02/07 ) Est kcal needs as per MSJ: 2300 (40% carb, 30% protein/fat) Est fluid needs as per 25-30 ml/d: 3700 Est prot per day as per 1 g/kg bw: 122 Recommend fiber intake : 8-10 g per day and gradually increase to 25-28 g per day for women and 35-38 g for men or as tolerated Recommend sodium intake per day : less than 1500 mg less than 2300 mg Educated patient on: ( R = reviewed V = verbalizes understanding N/R = needs review N/A = not applicable * Food sources of carbohydrate, adequate serving sizes and its role in various health conditions: R V N/R * Differences between complex carbohydrates a simple carbohydrates, role of fiber in diet: R * Lean protein sources of foods: R * Hydration : R * Differences between types of fats and role in diet (mono on saturated fat fatty acids, saturated fatty acids, trans fats): R V N/R * Food sources of sodium in salt and healthy modifications for heart health in kidney health: R V R/V * Vitamins and minerals: R V N/R * Healthy plate method concept: R * Physical activity: Benefits a precaution: R V N/R Patient Instructions: Increase fluid intake by having 8-10 oz of water with each meals and snack Aim at including at least 2 fruits a day - replacing pastries/cookies and similar Coding Level of Care Code Nutr Indiv Intake (30297) Diagnoses Morbid obesity with body mass index (BMI) of 40.0 to 49.9 E66.01 Time Spent (min) 30
[2024-01-16 20:18] VITALS: BMI 49.2
== END 2024-01-15 15:10 | disposition home or self-care (01) ==
PROVIDERS: PCP Physician Assistant; Visit Provider Dietitian, Registered
DX: E66.01 Morbid (severe) obesity due to excess calories (principal)

== ENCOUNTER → 2024-01-15 14:20 | Outpatient (BNVA) | payer OTHER, SELFPAY | PROVIDERS: PCP Physician Assistant; Visit Provider Dietitian, Registered | DX: E66.01 Morbid (severe) obesity due to excess calories (principal); Z68.42 Body mass index [BMI] 45.0-49.9, adult; Z71.3 Dietary counseling and surveillance | CPT/HCPCS: 97802 ==

== ENCOUNTER 2024-01-30 09:51 | Emergency (ER) | payer OTHER, SELFPAY ==
[2024-01-30 10:07] VITALS: BP 125/70; PULSE 82; O2SAT 96
[2024-01-30 10:22] VITALS: BP 108/83; PULSE 72; RESP 16; TEMP 36.5; O2SAT 99; BMI 44.3
[2024-01-30] MEDS: Ondansetron ODT 4 MG TAB.RAPDIS TRANSLINGU (10:26)
== END 2024-01-30 18:36 | disposition left against medical advice (07) ==
LOC: HO.ED 18:31
PROVIDERS: Emergency Provider Emergency Medicine
DX: R11.2 Nausea with vomiting, unspecified (principal)
CPT/HCPCS: 99281

== ENCOUNTER → 2024-02-27 09:45 | Outpatient (REF) | payer OTHER, SELFPAY | LOC: HO.SL 09:45 | PROVIDERS: PCP Physician Assistant; Visit Provider Physician Assistant | DX: G47.33 Obstructive sleep apnea (adult) (pediatric) (principal) | CPT/HCPCS: 95806 ==

== ENCOUNTER 2024-03-05 14:20 | Outpatient (REF) | payer OTHER, SELFPAY ==
[2024-03-05 18:05] LABS: Alanine Aminotransferase 18 U/L (0-31); Alkaline Phosphatase 94 U/L (39-117); Anion Gap 9 (12-20); Aspartate Amino Transferase 16 U/L (5-31); Bilirubin Total 0.4 mg/dL (0.0-1.0); Blood Urea Nitrogen 13 mg/dL (9-16); Calcium 8.8 mg/dL (8.4-10.2); Carbon Dioxide 25 mmol/L (22-29); Chloride 107 mmol/L (96-108); Estimated Glomerular Filt Rate > 60; Glucose Fasting 92 mg/dL (60-99); Potassium 3.9 mmol/L (3.3-5.1); Sodium 137 mmol/L (135-145); Total Protein 7.8 g/dL (6.5-8.0)
[2024-03-05 18:24] LABS: TSH reflex Free T4 10.53 uIU/mL (0.32-4.0); Vitamin D 25-OH Total 25.5 ng/mL (>30)
[2024-03-06 03:37] LABS: Syphilis Screen Nonreactive (Nonreactive)
[2024-03-06 03:55] LABS: HBc Num1 0.16 S/CO (0.00-0.79); HIV AB/AG Nonreactive (Nonreactive); HIV Num 1 0.05 S/CO (0.00-0.99); Hepatitis B Core Antibody Nonreactive (Nonreactive); ~HepC Num1 0.13 S/CO (0.00-0.79); ~Hepatitis C Antibody Nonreactive (Nonreactive)
== END 2024-03-05 14:21 | disposition home or self-care (01) ==
LOC: HO.LAB 14:20
PROVIDERS: PCP Physician Assistant; Referring Provider Physician Assistant; Visit Provider Advanced Practice Midwife
DX: E89.0 Postprocedural hypothyroidism (principal); Z13.1 Encounter for screening for diabetes mellitus; E55.9 Vitamin D deficiency, unspecified; Z20.2 Contact with and (suspected) exposure to infections with a predominantly sexual mode of transmission
CPT/HCPCS: 36415; 80053; 82306; 84439; 84443; 86704; 86780; 86803; 87389

== ENCOUNTER 2024-03-05 14:20 | Outpatient (AMB) | payer OTHER, SELFPAY ==
[2024-03-05 14:35] VITALS: BP 112/62; BMI 48.2
--- NOTE | 2024-03-05 14:35 | MHC.OFFVIS ---
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 cyst on rt. labial wall x 2 yrs Director Of Community Education Required: No Allergies Seasonal Allergies Allergy (Mild, Verified 03/05/24 14:41) Unknown Medication List - Last Reconciled 03/05/24 by Hodan Ho LPN levothyroxine 150 mcg PO DAILY 30 days semaglutide (weight loss) (Wegovy) 0.25 mg (0.5 mL) subcut QWEEK 4 weeks sertraline 50 mg PO DAILY Is last menstrual period known: Yes Last menstrual period: 02/26/24 Post menopausal: No HPI Comments Details: She is a premenopausal woman presenting for annual examination. Doing well with concerns:Cyst on the inner right side (labia minora) that comes and goes over the last 2 years, slightly uncomfortable to touch at times, not bothersome today. Also reports some skin bumps under the breast. Irregular monthly menses, skips up to a months the past. Currently is not sexually active. She denies vaginal itching and irritation. STI screening offered; she accepts. 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 Denies family history of ovarian or colon cancer. FH-breast cancer-P.aunt. Last pap smear 2021, negative. PFSH Medical History Nexplanon in place Palpitations Vitamin D deficiency Toxic multinodular goiter Postoperative hypothyroidism Surgical History Hx of endoscopy H/O thyroidectomy Family History Father Diabetes Mother No problems noted. 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 needs: No Hearing needs: No Vision needs: No Female Reproductive History Menstrual Age of Menarche: 10 Duration of menses: 3-5 days Date of last menstrual period: 02/26/24 control method: none Total pregnancies: 0 Date of last pap smear: 02/08/22 History of abnormal pap smear: No History of STI: No Review of Systems Const All systems reviewed & are unremarkable except as noted in HPI and below Reports as per HPI Eyes Reports no additional complaints ENT Reports no additional complaints Card Reports no additional complaints Resp Reports no additional complaints GI Reports as per HPI and Reports no additional complaints Reports as per HPI Musc Reports no additional complaints Skin/Breast Reports as per HPI Neuro Reports no additional complaints Psych Reports no additional complaints Endo Reports no additional complaints Meño/Lymph Reports no additional complaints Aller/Immun Reports no additional complaints Physical Exam Vital Signs: Last Vital Signs BP 112/62 03/05/24 14:35 BMI result Body Mass Index 48.2 Const General: cooperative, healthy appearing, no acute distress, well developed and alert Orientation/consciousness: patient oriented x3 HEENT Head: Yes normal to inspection Eyes General: appearance normal, both eyes and all related structures Neck Neck: Yes normal visual inspection Thyroid: Thyroid normal Chest Other: Skin acne on an under the breast Chest palpation & inspection: normal inspection of the chest and other (no puckering, dimpling, peau de orange, retraction, discharge, masses) Breast/axilla inspection: normal inspection of the breasts Breast/axilla palpation: normal palpation of the breasts Resp Effort & Inspection: normal respiratory effort GI Inspection: Yes normal to inspection Palpation (GI): Soft to palpation Rectal Exam - Female: deferred General: Yes bladder normal to palpation External Female Exam: normal external appearance and normal appearance of the urethra Speculum Exam - Vagina: normal appearance of the vagina, normal palpation and normal vaginal discharge Speculum Exam - Cervix: normal appearance of the cervix and normal palpation Bimanual exam- vagina & uterus: normal bimanual exam, normal palpation, uterine size normal, bladder normal to palpation, normal palpation and non-tender Bimanual Exam- Adnexa, other: no masses Skin General skin exam: no rashes or lesions noted Rashes: no rashes Neuro General: patient oriented x3 Cognition (Neuro): normal cognition Extrem General: Yes normal to inspection Psych Attitude: cooperative Thought process: Normal thought process present Assessment & Plan Assessment & Plan (1) Well woman exam with routine gynecological exam: Code(s): Z01.419 - Encounter for gynecological examination (general) (routine) without abnormal findings Category: Medical Plan Discussed: Current recommendations for pap smears per ASCCP guidelines. Pap today. Breast awareness and periodic breast exams. Maintain a healthy lifestyle including a well balanced diet and routine exercise. Use condoms for STI and prevention. Desires blood work for STD screening. GC chlamydia and BV panel today. Return to the office sooner if needs control. If right labial cyst or bump returns to come in when she has the symptoms to have further evaluation. Skin care: Antimicrobial soap, rinse well, dry well, loose cotton underclothing. Patient verbalizes understanding and agrees to the plan of care. She was given opportunity to ask questions and all questions were answered to the best of my ability. 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 This note is constructed using voice recognition software. While every effort has been made to ensure accuracy, commercial door installer errors may have been included. Orders: Orders HIV Ab/Ag Today Z20.2 - Contact with and (suspected) exposure to infections with a predominantly sexual mode of transmission Syphilis Screen Today Z20.2 - Contact with and (suspected) exposure to infections with a predominantly sexual mode of transmission Hepatitis C Antibody Reflex Today Z20.2 - Contact with and (suspected) exposure to infections with a predominantly sexual mode of transmission Hepatitis B Core Antibody Today Z20.2 - Contact with and (suspected) exposure to infections with a predominantly sexual mode of transmission Coding Level of Care Code Est Pt Prev Care 18-39y([id number]) Diagnoses Well woman exam with routine gynecological exam Z01.419
== END 2024-03-05 16:03 | disposition home or self-care (01) ==
PROVIDERS: PCP Physician Assistant; Visit Provider Advanced Practice Midwife
DX: Z01.419 Encounter for gynecological examination (general) (routine) without abnormal findings (principal)
CPT/HCPCS: 99395

== ENCOUNTER 2024-03-05 15:55 | Outpatient (REF) | payer OTHER, SELFPAY ==
[2024-03-07 09:58] LABS: HPV 16,18/45 See PAP report
== END 2024-03-05 15:56 | disposition home or self-care (01) ==
LOC: HO.LNP 15:55
PROVIDERS: Visit Provider Advanced Practice Midwife
DX: Z12.4 Encounter for screening for malignant neoplasm of cervix (principal); Z11.51 Encounter for screening for human papillomavirus (HPV); Z00.00 Encounter for general adult medical examination without abnormal findings
CPT/HCPCS: 87624; 88175

== ENCOUNTER 2024-03-06 15:43 | Outpatient (REF) | payer OTHER, SELFPAY ==
[2024-03-07 07:48] LABS: CT PCR NOT DETECTED (Not Detect.); NG PCR NOT DETECTED (Not Detect.)
[2024-03-07 11:44] LABS: Bacterial Vaginosis PCR POSITIVE (Negative); Candida Group PCR NOT DETECTED (Not Detect); Candida glab krusei PCR NOT DETECTED (Not Detect); Trichomonas vaginalis PCR NOT DETECTED (Not Detect)
== END 2024-03-06 15:44 | disposition home or self-care (01) ==
LOC: HO.LNP 15:43
PROVIDERS: Visit Provider Advanced Practice Midwife
DX: Z00.00 Encounter for general adult medical examination without abnormal findings (principal); Z12.4 Encounter for screening for malignant neoplasm of cervix; Z11.3 Encounter for screening for infections with a predominantly sexual mode of transmission
CPT/HCPCS: 0352U; 87491; 87591

== ENCOUNTER 2024-04-06 15:11 | Emergency (ER) | payer OTHER, SELFPAY ==
--- NOTE | ~2024-04-06 | CT_ITS ---
EXAMINATION: CT ABDOMEN AND PELVIS WITH CONTRAST CLINICAL INFORMATION: Abdominal pain centrally COMPARISON: None available. TECHNIQUE: Multidetector volumetric images were obtained from the superior aspect of the liver through the pubic symphysis following administration 85 mL of Omnipaque 350 intravenous contrast. Sagittal and coronal reformatted images were obtained on the technologist's workstation. Oral contrast: No This CT examination was performed using dose optimization techniques as appropriate, variously including the following: *Automated exposure control *Adjustment of mA and/or kV according to patient size (this includes techniques or standardized protocols for targeted exams where dose is matched to indication/reason for exam; i.e. extremities or head) *Use of iterative reconstruction technique DLP: 1151 mGy-cm FINDINGS: LUNG BASES: Unremarkable. ABDOMINAL AND PELVIC WALL: Unremarkable. LIVER AND BILIARY TREE: Hepatic steatosis. No focal hepatic lesion or intrahepatic biliary ductal dilatation. GALLBLADDER: Unremarkable. PANCREAS: Unremarkable. SPLEEN: Unremarkable. ADRENAL GLANDS: Unremarkable. KIDNEYS AND URETERS: Unremarkable. GASTROINTESTINAL TRACT: Unremarkable. Appendix is within normal limits. VASCULAR: Unremarkable LYMPH NODES/PERITONEUM: No lymphadenopathy. FREE FLUID: None. BLADDER: Unremarkable. PELVIC VISCERA: Left ovarian 1.0 cm corpus luteal cyst. OSSEOUS STRUCTURES: Unremarkable. CT/CT abdomen pelvis w IV con IMPRESSION: * No acute intra-abdominal abnormality. * Hepatic steatosis. Electronically signed by: Amisha Anand MD 04/06/2024 07:36 PM [facility]
[2024-04-06 15:23] VITALS: BP 120/88; BP 129/88; PULSE 79; O2SAT 100; BMI 49.7
[2024-04-06 15:24] VITALS: BP 129/88; PULSE 80; RESP 20; TEMP 36.3; O2SAT 99
--- NOTE | 2024-04-06 15:56 | ECG_ITS ---
Test Reason : ABD PAIN Blood Pressure : / mmHG Vent. Rate : 079 BPM Atrial Rate : 079 BPM P-R Int : 162 ms QRS Dur : 076 ms QT Int : 376 ms P-R-T Axes : 000 022 016 degrees QTc Int : 431 ms Normal sinus rhythm Normal ECG When compared with ECG of 22-APR-2020 17:19, No significant change was found Referred By: Brian Kyle Electronically Signed By:SARKIS ALEXIS
[2024-04-06 16:00] LABS: MANUAL DIFF FLAG NO
[2024-04-06 16:05] LABS: Basophils Percent Auto 0.2 % (0-2); Eosinophils Percent Auto 0.2 % (0-4); Hematocrit 43.1 % (37.0-47.0); Hemoglobin 13.8 g/dl (12.0-16.0); Imm Gran Abs Auto 0.05 X10*3/uL (0.00-0.03); Imm Gran Pct Auto 0.4 % (0.0-0.4); Lymphocytes Absolute Auto 1.9 X10*3/uL (1.2-4.9); Lymphocytes Percent Auto 15.4 % (20-40); Mean Corpuscular Hemoglobin 22.3 pg (27.0-33.0); Mean Corpuscular Volume 69.7 fL (80.0-98.0); Mean Platelet Volume 10.1 fL (9.4-12.3); Monocytes Absolute Auto 0.6 X10*3/uL (0.1-1.2); Monocytes Percent Auto 4.8 % (2-11); Neutrophils Absolute Auto 9.9 x10*3/uL (2.0-8.3); Platelet Count 332 X10*3/uL (160-400); Red Blood Count 6.18 X10*6/uL (4.20-5.50); Red Cell Distribution Width 16.2 % (11.0-16.0); White Blood Count 12.5 X10*3/uL (4.8-10.8)
[2024-04-06] MEDS: Pantoprazole Sodium 40 MG/10 ML VIAL IVPUSH (16:08)
[2024-04-06] MEDS: Metoclopramide HCl 10 MG/2 ML VIAL IVPUSH (16:19)
[2024-04-06 16:23] LABS: Albumin Level 4.4 g/dL (3.5-5.0); Anion Gap 17 (12-20); Aspartate Amino Transferase 21 U/L (5-31); Bilirubin Direct 0.2 mg/dL (0.0-0.5); Bilirubin Total 0.8 mg/dL (0.0-1.0); Blood Urea Nitrogen 9 mg/dL (9-16); Calcium 9.5 mg/dL (8.4-10.2); Carbon Dioxide 20 mmol/L (22-29); Chloride 106 mmol/L (96-108); Creatinine Clr Calc Pharmacy 132.1; Estimated Glomerular Filt Rate > 60; Glucose Random 100 mg/dL (60-115); Lipase 32 U/L (8-78); Potassium 3.9 mmol/L (3.3-5.1); Sodium 139 mmol/L (135-145); Total Protein 8.5 g/dL (6.5-8.0)
--- NOTE | 2024-04-06 16:24 | ED_ITS ---
HPI - Abdominal Pain General Chief Complaint: Abdominal Pain Stated Complaint: abdominal pain Time Seen by Provider: 04/06/24 15:59 Related Data Previous Rx's ?Medication ?Instructions ?Recorded sertraline 50 mg tablet 50 mg PO DAILY #90 tabs 11/20/23 semaglutide (weight loss) 0.25 0.25 mg (0.5 mL) subcut QWEEK 4 12/12/23 mg/0.5 mL subcutaneous pen weeks #2 mL injector (Wegovy) levothyroxine 175 mcg tablet 175 mcg PO DAILY 30 days #30 tabs 03/07/24 metoclopramide HCl 10 mg tablet 10 mg PO Q6H PRN nausea and 04/06/24 (Reglan) vomiting #7 tabs ondansetron HCl 4 mg tablet 4 mg PO Q8H #10 tabs 04/06/24 Allergies Allergy/AdvReac Type Severity Reaction Status Date / Time Seasonal Allergies Allergy Mild Unknown Verified 04/06/24 15:28 [facility] Past Medical History Medical History Nexplanon in place Palpitations Vitamin D deficiency Toxic multinodular goiter Postoperative hypothyroidism Surgical History Hx of endoscopy H/O thyroidectomy Family History Family History Father Diabetes Mother No problems noted. Paternal Aunt Breast cancer Paternal Aunt Cervical cancer Social History Social History (Updated 12/12/23 @ 09:08 by Marquis Zaidi PA-C) Household Members: Family Housing: House Alcohol intake: current Alcohol intake frequency: holidays/special occasions only Patient Tobacco Use Status: Never used Tobacco Smoked in Last 30 Days: No e-Cigarette/Vaping Use: Never Used Use of substances other than those prescribed or required for medical reasons: Yes Substance Use Type: Marijuana Substance Use Frequency: Occasionally Advance Directives: No Advance Directives Information Provided: No Do you have a plan to hurt others: No Plan Patient : No Current occupational status: employed Current occupation: [employer]- Cognitive needs: No Hearing needs: No Vision needs: No Physical Exam ED Vital Signs: Vital Signs - 24 hr 04/06/24 15:23 04/06/24 15:24 Temperature 97.4 F Pulse Rate 80 Respiratory Rate 20 Blood Pressure 129/88 129/88 Pulse Oximetry 99 Oxygen Delivery Method Room Air BMI result Body Mass Index 49.7 Medical Decision Making Medical Decision Making [facility] Narrative: 28-year-old female with daily cannabis use and recent will go via initiation 25 mg. She also has thyroid disorder. She has central periumbilical pain nausea decreased appetite worsening over the past 2-3 days. No increasing of the dose of Wegovy. No change of the marijuana use. No abdominal trauma. She denies urinary symptoms. No GI bleeding. No prior abdominal surgeries Differential Diagnosis Differential Diagnoses: The differential diagnosis associated with the presentation includes ( cannabis hyperemesis, side effect from GLP 1, dehydration, electrolyte derangement) Admission/Observation Consideration of admission/observation: Escalation of care including admission/observation considered considered that she may need continued fluid and antiemetic intravenously but she improved Lab Data [facility] Lab Attestation statement: I reviewed the patient's lab results. non actionable chemistry and mild nonspecific leukocytosis otherwise normal hematology testing 04/06/24 15:56 04/06/24 15:56 Labs: Lab Results 04/06/24 04/06/24 04/06/24 Range/Units 15:56 16:14 18:04 WBC 12.5 H (4.8-10.8) X10*3/uL RBC 6.18 H (4.20-5.50) X10*6/uL Hgb 13.8 (12.0-16.0) g/dl Hct 43.1 (37.0-47.0) % MCV 69.7 L (80.0-98.0) fL MCH 22.3 L (27.0-33.0) pg MCHC 32.0 (31.0-35.0) g/dl RDW 16.2 H (11.0-16.0) % Plt Count 332 (160-400) X10*3/uL MPV 10.1 (9.4-12.3) fL Immature Gran % (Auto) 0.4 (0.0-0.4) % Neut % (Auto) 79.0 H (45-73) % Lymph % (Auto) 15.4 L (20-40) % Chambers % (Auto) 4.8 (2-11) % Eos % (Auto) 0.2 (0-4) % Baso % (Auto) 0.2 (0-2) % Lymph # (Auto) 1.9 (1.2-4.9) X10*3/uL Chambers # (Auto) 0.6 (0.1-1.2) X10*3/uL Eos # (Auto) 0.0 (0.0-0.4) X10*3/uL Baso # (Auto) 0.0 (0.0-0.2) X10*3/uL Abs Immat Gran (auto) 0.05 H (0.00-0.03) X10*3/uL Absolute Neuts (auto) 9.9 H (2.0-8.3) x10*3/uL Absolute Nucleated RBC 0.000 (0.0-0.012) X10*3/uL Nucleated RBC % (auto) 0.0 (0.0-0.2) /100WBC Sodium 139 (135-145) mmol/L Potassium 3.9 (3.3-5.1) mmol/L Chloride 106 (96-108) mmol/L Carbon Dioxide 20 L (22-29) mmol/L Anion Gap 17 (12-20) BUN 9 (9-16) mg/dL Creatinine 0.78 (0.5-1.4) mg/dL Estim Creat Clear Calc 132.1 Estimated GFR > 60 Random Glucose 100 (60-115) mg/dL Calcium 9.5 D (8.4-10.2) mg/dL Total Bilirubin 0.8 (0.0-1.0) mg/dL Direct Bilirubin 0.2 (0.0-0.5) mg/dL AST 21 (5-31) U/L ALT 16 (0-31) U/L Alkaline Phosphatase 101 (39-117) U/L Total Protein 8.5 H (6.5-8.0) g/dL Albumin 4.4 (3.5-5.0) g/dL Lipase 32 (8-78) U/L Urine Color Yellow Urine Appearance Cloudy Urine pH 6.0 (5.0-9.0) Ur Specific [place] 1.025 (1.005-1.025) Urine Protein Trace (Neg-Trace) mg/dL Urine Glucose (UA) Negative (Negative) mg/dL Urine Ketones >=160 (Negative) mg/dL Urine Blood Negative (Negative) Urine Nitrite Negative (Negative) Ur Leukocyte Esterase Small (1+) H (Negative) Urine RBC 0-2 (0-2) /HPF Urine WBC 0-5 (0-5) /HPF Ur Squamous Epith Cells 6-10 (0-2) /HPF Urine Bacteria 1+ (None Seen) Hyaline Casts 0-2 (0-2) /LPF Influenza Type A (PCR) NEGATIVE (Negative) Influenza Type B (PCR) NEGATIVE (Negative) RSV RNA Qual (PCR) NEGATIVE (Negative) SARS-CoV-2 RNA (RT-PCR) NEGATIVE (Negative) Independent Interpretation I performed an independent interpretation of an: EKG and CT Scan ( no acute pathology, hepatic steatosis) Interpretation: sinus rhythm no ischemic changes. QTC 430 range Radiology Impression Discussion of test interpretation with radiology: I have reviewed the radiologist's reading. Chronic Conditions Patient?s care impacted by: Other ( morbid obesity) Medications Administered Discontinued Medications Generic Name Dose Route Start Last Admin Trade Name Freq PRN Reason Stop Dose Admin Erythromycin Lactobionate 250 100 mls @ 100 mls/hr 04/06/24 15:56 04/06/24 17:34 mg/ Sodium Chloride IV 04/06/24 16:55 100 mls/hr ONCE ONE Administration Iohexol 85 ml 04/06/24 19:08 04/06/24 19:09 Iohexol 350 Mg/Ml 100 Ml Infus..Btl IV 04/06/24 19:09 85 ml ONCE ONE Administration Metoclopramide HCl 10 mg 04/06/24 15:56 04/06/24 16:19 Metoclopramide Hcl 10 Mg/2 Ml Vial IVPUSH 10 mg ONCE PRN Administration Dyspepsia Ondansetron HCl 4 mg 04/06/24 15:56 04/06/24 16:05 Ondansetron Hcl 4 Mg/2 Ml Vial IVPUSH 04/06/24 15:57 Not Given ONCE ONE Pantoprazole Sodium 40 mg 04/06/24 15:56 04/06/24 16:08 Pantoprazole Sodium 40 Mg/10 Ml Vial IVPUSH 04/06/24 15:57 40 mg ONCE ONE Administration Discharge Plan Discharge Clinical Impression: Cannabis hyperemesis syndrome concurrent with and due to cannabis abuse, Adverse drug effect Patient Disposition: Home, Self-Care Instructions: Cannabis Abuse (ED), Abdominal Pain (ED) Additional Instructions: DISCHARGE DIAGNOSES: Abdominal pain and vomiting it can not be definitively determine the cause but we feel this is either secondary to daily cannabis use which we recommend you stop doing or an adverse effect of the initiation of Wegovy in which case this is common adverse effect with abdominal pain and nausea. Discuss these symptoms with your primary doctor HISTORY OF PRESENTATION: worsening central abdominal pain EMERGENCY DEPARTMENT COURSE,TESTS, TREATMENTS: While in the ED today you had nausea medication including metoclopramide you had IV fluid and erythromycin which is an antibiotic but in this case is used to help the stomach and intestine move food and secretions forward. CT was performed with no acute pathology identified there was evidence of fatty liver disease which is likely mild and chronic and can discuss this with your primary doctor DISCHARGE MEDICATIONS: [We have made no changes to your regular medication regimen, we have added an additional antiemetic or nausea medicine onto your regimen this is to be taken only as needed for nausea we will provide you with 2 of these only take the 1 that works best view metoclopramide or oral dissolving tablets of Zofran. FOLLOW-UP: Call your primary or general physician soon as possible to discuss your symptoms, your ED visit and to discuss follow up plans Call your primary doctor for follow-up INSTRUCTIONS & RETURN PRECAUTIONS: If any symptoms change first call your primary physician, if it is after-hours your primary doctors office should have a provider pharmacy salesperson you can speak with. If the symptoms are severe or very concerning to you then call 911 or return to the ED. discuss your Wegovy continuance with your primary doctor. Eat small but regular meals and drink plenty of fluid you can take Tylenol for pain you can take the antiemetic or nausea medicine that we provided you whichever 1 works better for you you should try. Return for severe or worsening pain, high fevers, inability to tolerate liquids or solids Brian Kyle MD Emergency Physician [facility] Prescriptions: New ondansetron HCl 4 mg tablet 4 mg PO Q8H Qty: 10 0RF metoclopramide HCl [Reglan] 10 mg tablet 10 mg PO Q6H PRN (Reason: nausea and vomiting) Qty: 7 0RF No Action sertraline 50 mg tablet 50 mg PO DAILY Qty: 90 1RF levothyroxine 175 mcg tablet 175 mcg PO DAILY 30 Days Qty: 30 3RF Wegovy 0.25 mg/0.5 mL pen injector 0.25 mg subcut QWEEK 28 Days Qty: 2 0RF Rx Instructions: administer weeks 1 through 4 of therapy Print Language: Armenian
--- NOTE | 2024-04-06 16:32 | PC.NURSE ---
patient a&ox3, vss, iv inserted, labs drawn, swab obtained, ekg obtained, pt c/o -01/24 abd pain. pt medicated per order, pharmacy called for missing abx. call roberts within reach, plan of care ongoing
[2024-04-06 16:59] LABS: Influenza A PCR NEGATIVE (Negative); Influenza B PCR NEGATIVE (Negative); Resp Syncy Virus RNA Qual PCR NEGATIVE (Negative); SARS COV2 PCR INHOUSE NEGATIVE (Negative)
[2024-04-06 17:11] LABS: Alanine Aminotransferase 16 U/L (0-31); Alkaline Phosphatase 101 U/L (39-117)
[2024-04-06] MEDS: Erythromycin Lactobionate 250 MG in 0.9 % Sodium Chloride 100 ML 100 MG IV (17:34)
--- NOTE | 2024-04-06 17:38 | PC.NURSE ---
Per provider patient does not need BC or lactic and abx to be hung per order.
[2024-04-06 18:12] LABS: Appearance Urine Cloudy; Color Urine Yellow; Glucose Urine UA Negative (Negative); Leukocyte Esterase Urine Small (1+) (Negative); Nitrite Urine Negative (Negative); Specific Gravity - Urine 1.025 (1.005-1.025); UMIC TRIGGER UACC YES; Urine Blood Negative (Negative); Urine Ketones >=160 mg/dL (Negative); Urine Protein Trace mg/dL (Neg-Trace)
[2024-04-06 18:25] LABS: Bacteria Urine 1+ (None Seen); Hyaline Casts Urine 0-2 /LPF (0-2); RBC Urine 0-2 /HPF (0-2); UACC Culture Trigger YES; WBC Urine 0-5 /HPF (0-5)
--- NOTE | 2024-04-06 19:00 | PC.NURSE ---
pt iv stopped for her to ambulate to bathroom, additionally pt went to radiology, will reconnect patient when she returns
[2024-04-06] MEDS: iohexoL 350 MG/ML 100 ML INFUS..BTL 85 ML IV (19:09)
[2024-04-06 20:00] VITALS: BP 106/66; PULSE 83; RESP 12; TEMP 36.4; O2SAT 98
[2024-04-06 21:06] VITALS: BP 106/66; PULSE 83; RESP 12; TEMP 36.4; O2SAT 98
== END 2024-04-06 21:08 | disposition home or self-care (01) ==
PROVIDERS: Emergency Provider Emergency Medicine; PCP Physician Assistant
DX: T40.721A Poisoning by synthetic cannabinoids, accidental (unintentional), initial encounter (principal); R11.11 Vomiting without nausea; F12.10 Cannabis abuse, uncomplicated; Y92.9 Unspecified place or not applicable; R10.9 Unspecified abdominal pain; E66.9 Obesity, unspecified; Z68.42 Body mass index [BMI] 45.0-49.9, adult; Z03.818 Encounter for observation for suspected exposure to other biological agents ruled out
CPT/HCPCS: 0241U; 36415; 74177; 80053; 81001; 82248; 83690; 85025; 87086; 93005; 96365; 96375; 96376; 99285; J1364; J2470; J2765; Q9967

== ENCOUNTER → 2024-04-06 15:56 | Outpatient (BNV) | payer OTHER, SELFPAY | PROVIDERS: Emergency Provider Emergency Medicine; PCP Physician Assistant; Visit Provider Internal Medicine | DX: R10.9 Unspecified abdominal pain (principal) | CPT/HCPCS: 93010 ==

== ENCOUNTER 2024-07-04 08:35 | Outpatient (AMB) | payer OTHER, SELFPAY ==
[2024-07-04 08:42] VITALS: BP 110/72; PULSE 86; O2SAT 97; BMI 48.3
--- NOTE | 2024-07-04 08:42 | A.OFFPC_ITS ---
Vital Signs 07/04/24 08:42 Height 5 ft 2 in Weight 264 lb BMI 48.3 BP 110/72 Blood Pressure Location Lt brachial Position Sitting Pulse 86 Pulse Source Pulse Oximeter Pulse Oximetry (%) 97 Oxygen Delivery Method Room Air Intake Visit Reasons: weight check Family Practice Md Required: No Accompanied by: Self / Same As Patient Allergies Seasonal Allergies Allergy (Mild, Verified 07/04/24 09:11) Unknown Medication List - Last Reconciled 07/04/24 by Marquis Zaidi PA-C levothyroxine 175 mcg PO DAILY 30 days metoclopramide HCl (Reglan) 10 mg PO Q6H PRN ondansetron HCl 4 mg PO Q8H semaglutide (weight loss) (Wegovy) 0.25 mg (0.5 mL) subcut QWEEK 4 weeks sertraline 50 mg PO DAILY Tobacco use date assessed: 07/04/24 Dental Screening Dental Screen Date: 07/04/24 Did you have a dental visit in the last 12 months?: Yes Did you have a dental problem in the last 6 months where you did not have access to dental care?: No Was dental information given to patient?: Patient has dentist HPI weight check HPI Details Patient is a 28-year-old female here today for a follow-up visit. Patient has a past medical history significant for hypothyroidism, obesity, anxiety, vitamin-D deficiency. .. Obesity: Patient has started Wegovy at a starting dose of 0.25 mg. She has experienced a reduction in weight from 269 to 264 pounds since her prior consultation two weeks ago. Initially, the patient encountered severe stomach cramps necessitating an emergency department visit, which led to a brief discontinuation of her medication. She aims to achieve a target weight of 200 pounds and has initiated a gym regimen along with dietary modifications to support her goal. .. Hypothyroidism: Patient is status post thyroidectomy. Was stay levothyroxine 50 mcg. She does admit to being somewhat inconsistent with the medication. Will recheck levels to ensure normal TSH. .. Anxiety: Patient continues on sertraline which has been helpful for her anxiety. She does admit to mixed IBS symptoms that are related to her anxious symptoms and stress. [facility] Medical History Nexplanon in place Palpitations Vitamin D deficiency Toxic multinodular goiter Postoperative hypothyroidism Surgical History Hx of endoscopy H/O thyroidectomy Family History Father Diabetes Mother No problems noted. Paternal Aunt Breast cancer Paternal Aunt Cervical cancer Social History Household Members: Family Housing: House Alcohol intake: current Alcohol intake frequency: holidays/special occasions only Patient Tobacco Use Status: Never used Tobacco e-Cigarette/Vaping Use: Never Used Second Hand Smoke Exposure: No Substance Use Type: Marijuana service: No Current occupational status: employed Current occupation: [employer]- Current occupational exposures/hazards: No Cognitive needs: No Hearing needs: No Vision needs: No Female Reproductive History Menstrual Age of Menarche: 10 Questionnaire PHQ-9 Over the last 2 weeks, how often have you been bothered by any of the following problems? 1. Little interest or pleasure in doing things: not at all 2. Feeling down, depressed, or hopeless: several days 3. Trouble falling or staying asleep, or sleeping too much: not at all 4. Feeling tired or having little energy: not at all 5. Poor appetite or overeating: not at all 6. Feeling bad about yourself - or that you are a failure or have let yourself or your family down: not at all 7. Trouble concentrating on things, such as reading the newspaper or watching television: not at all 8. Moving or speaking so slowly that other people could have noticed. Or the opposite - being so fidgety or restless that you have been moving around a lot more than usual: not at all 9. Thoughts that you would be better off or of hurting yourself in some way: not at all Total score: 1 Depression Screening Interpretation: Negative Depression Screening Done: Yes 89375 - PHQ-9 Billing: Yes Source: Developed by Drs. Juan Velez, Cora Rosas, Carlos Andersen and colleagues, with an educational justin from [employer]...Exactly. Thrive Questionnaire Date Thrive assessed: 12/12/23 AUDIT C Alcohol Use Questionnaire (AUDIT-C) 1. How often do you have a drink containing alcohol?: 2-3 times a week 2. How many drinks containing alcohol do you have on a typical day when you are drinking?: 1 or 2 3. How often do you have six or more drinks on one occasion?: Never Total Score: 3 Score Reviewed/Action Taken: No MONROE-7 AMB Questionnaire MONROE-7 Date MONROE - 7 assessed: 07/04/24 Feeling nervous, anxious, or on edge: 1 = Several days Not being able to stop or control worryin = Not at all Worrying too much about different things: 0 = Not at all Trouble relaxin = Not at all Being so restless that it is hard to sit still: 0 = Not at all Becoming easily annoyed or irritable: 0 = Not at all Feeling afraid as if something awful might happen: 0 = Not at all Total MONROE-7 score (0-4 normal; 5-9 mild; 10-14 moderate; 15-21 severe): 1 Source: Developed by Drs. Juan Velez, Cora Rosas, Carlos Andersen and colleagues, with an educational justin from [employer]...Exactly. MONROE-7 Assessment Billing MONROE-7 Assessment Tool: MONROE-7 Assessment 48210 Review of Systems Const Denies headache(s) Eyes Denies loss of vision ENT Denies vertigo, Denies dizziness, Denies headache(s) and Denies sore throat Card Denies chest pain, Denies leg edema and Denies lightheadedness Resp Denies cough, Denies hemoptysis and Denies wheezing GI Denies abdominal pain, Denies melena, Denies constipation, Denies diarrhea and Denies vomiting Denies urinary frequency, Denies dysuria and Denies urinary urgency Musc Denies arthralgias, Denies joint swelling, Denies numbness and Denies tingling Neuro Denies Abnormal speech present, Denies behavioral changes, Denies vertigo, Leighton es dizziness, Denies headache(s), Denies loss of vision, Denies memory loss, Denies numbness and Denies tingling Psych Denies anxiety, Denies behavioral changes, Denies depression, Denies memory loss and Denies panic attacks Meño/Lymph Denies easy bleeding and Denies easy bruising Aller/Immun Denies wheezing Physical exam (Primary Care) Vital Signs: Last Vital Signs Pulse 86 03/20/25 08:42 BP 110/72 07/04/24 08:42 Pulse Ox 97 07/04/24 08:42 Oxygen Delivery Method Room Air 07/04/24 08:42 BMI result Body Mass Index 48.3 BMI Assessment/Plan discussion: High BMI High, discussed plan: lifestyle, weight reduction, dietary and physical activity Tobacco/Smoking Status: Tobacco use Status Tobacco use date assessed 07/04/24 07/04/24 08:50 Patient Tobacco Use Status Never used Tobacco 07/04/24 08:50 e-Cigarette/Vaping Use Never Used 07/04/24 08:50 PHQ-9: PHQ-9 Score PHQ-9: Total score 1 07/04/24 09:30 Depression Screening Interpretation: Negative Thrive Assessment: Date of Thrive Assessment Date Thrive assessed 12/12/23 07/04/24 08:50 Const General: healthy appearing, no acute distress, alert and awake Nutritional Appearance: well nourished Orientation/consciousness: oriented to person, oriented to place and oriented to time HENMT Ears: TM's normal bilaterally General nose exam: Normal nasal mucous membranes and turbinates present Eyes Conjunctivae: conjunctivae normal Sclerae: sclerae normal Pupils: Equal, round and reactive pupils present Neck Neck: Yes no lymphadenopathy and Yes no JVD Thyroid: Thyroid normal Carotids: no bruits Resp Effort & Inspection: normal respiratory effort and not tachypneic Auscultation: no crackles, no rales, no rhonchi and no wheezes Cardio Rate: regular rate Rhythm: regular rhythm Heart sounds: no murmurs and normal S1 and S2 GI Palpation (GI): Soft to palpation, nontender, no hepatomegaly and no splenomegaly Auscultation: normal bowel sounds Skin General skin exam: no rashes or lesions noted and dry skin Neuro General: oriented to person, oriented to place and oriented to time Cranial nerves: Yes Equal, round and reactive pupils present Speech: No Abnormal speech present Gait exam (Neuro): Normal gait present Motor exam (neuro): no tremor noted Extrem Right upper extremity: full ROM Left upper extremity: full ROM Right lower extremity: full ROM; no edema Left lower extremity: full ROM; no edema Psych Mental Status: mental status grossly normal Speech and movement: Normal speech and movement present Affect: normal affect Attitude: cooperative Thought process: Normal thought process present Coding Level of Care Code Est Pt Level 4 (65959) Diagnoses Class 3 obesity E66.813 Vitamin D deficiency E55.9 MONROE (generalized anxiety disorder) F41.1 Toxic multinodular goiter E05.20 Additional Codes MONROE-7 Assessment Billing - MONROE-7 Assessment Tool: MONROE-7 Assessment 77955 ([id number]) PHQ-9 - 73280 - PHQ-9 Billing: Yes ([id number]) Assessment & Plan Assessment & Plan (1) Class 3 obesity: Code(s): E66.813 - Obesity, class 3 Category: Medical Plan: Today's BMI at 48.3, has lost a few lb since starting Wegovy 0.25 mg weekly. The patient is committed to achieving a weight reduction goal of 200 pounds. Plans include consistent exercise particularly cardiovascular exercises, dietary modifications reducing carbohydrate and junk food intake, and titrating Wegovy as scheduled. Follow-up visits are scheduled to track progress and monitor any side effects. I reviewed the patient's history of obesity with ongoing use of Wegovy as a weight management tool. We have a clear plan for dose escalation and monitoring for side effects such as constipation, where we discussed the potential use of stool softeners. I emphasized the importance of consistent exercise, particularly cardiovascular activities, and portion control in her diet to support weight loss goals. (2) Vitamin D deficiency: Code(s): E55.9 - Vitamin D deficiency, unspecified Category: Medical Plan: Will continue to follow vitamin-D. Will continue on vitamin-D supplementation (3) MONROE (generalized anxiety disorder): Code(s): F41.1 - Generalized anxiety disorder Category: Medical Plan: Patient's MONROE-7 score 1, has a history of dietary though has been well managed with sertraline 50 mg. (4) Toxic multinodular goiter: Code(s): E05.20 - Thyrotoxicosis with toxic multinodular goiter without thyrotoxic crisis or storm Category: Medical Plan: Patient is status post thyroidectomy. She continues on levothyroxine 175 mcg indefinitely. Will recheck TSH to assure normal.
== END 2024-07-04 09:28 | disposition home or self-care (01) ==
LOC: HO.HMCH 08:36
PROVIDERS: PCP Physician Assistant; Visit Provider Physician Assistant
DX: E55.9 Vitamin D deficiency, unspecified (principal); E66.813 Obesity, class 3; Z68.42 Body mass index [BMI] 45.0-49.9, adult; F41.1 Generalized anxiety disorder; E05.20 Thyrotoxicosis with toxic multinodular goiter without thyrotoxic crisis or storm

== ENCOUNTER → 2024-07-04 08:35 | Outpatient (BNVA) | payer OTHER, SELFPAY | PROVIDERS: PCP Physician Assistant; Visit Provider Physician Assistant | DX: E66.813 Obesity, class 3 (principal); Z68.42 Body mass index [BMI] 45.0-49.9, adult; E55.9 Vitamin D deficiency, unspecified; F41.1 Generalized anxiety disorder; E05.20 Thyrotoxicosis with toxic multinodular goiter without thyrotoxic crisis or storm; Z79.899 Other long term (current) drug therapy | CPT/HCPCS: 96127 ==